=== PATIENT | female | born 1980 | race Caucasian/White ===

== ENCOUNTER → 2016-02-25 | Outpatient (CLI) | payer OTHER ==
[2016-02-26 15:56] LABS: Lamotrigine (Lamictal) 0.7 ug/mL (2.0-15.0)
[2016-02-28 04:47] LABS: Topiramate 1.9 ug/mL (2.0-20.0)
== END | disposition home or self-care (01) ==
LOC: LABWHC1 16:28
PROVIDERS: ATTEND Psychiatry & Neurology Pain Medicine
DX: R56.9 Unspecified convulsions (principal)
CPT/HCPCS: 36415; 80175; 80201

== ENCOUNTER → 2016-03-14 | Outpatient (CLI) | payer OTHER ==
[2016-03-15 07:42] LABS: Lamotrigine (Lamictal) 4.8 ug/mL (2.0-15.0)
[2016-03-16 07:11] LABS: Topiramate 5.7 ug/mL (2.0-20.0)
[2016-03-20 14:35] LABS: Mis test requested (Blood) VIMPAT
== END | disposition home or self-care (01) ==
LOC: LABWHC1 14:14
PROVIDERS: ATTEND Psychiatry & Neurology Pain Medicine
DX: R56.9 Unspecified convulsions (principal)
CPT/HCPCS: 36415; 80175; 80201; 80339

== ENCOUNTER → 2016-04-08 | Outpatient (CLI) | payer OTHER ==
[2016-04-08 11:20] LABS: Calcium 9.2 mg/dL (8.4-10.2); Magnesium 2.1 mg/dL (1.6-2.3)
[2016-04-08 12:39] LABS: Hemoglobin A1C 5.4 % (4.2-6.1)
[2016-04-11 05:29] LABS: Vitamin E (Alpha Tocopherol) 813 ug/dL (500-1800)
[2016-04-17 16:35] LABS: Vitamin K 162 pg/mL (80-1160)
== END | disposition home or self-care (01) ==
LOC: LABWHC1 10:23
PROVIDERS: ATTEND Psychiatry & Neurology Pain Medicine
DX: E55.9 Vitamin D deficiency, unspecified (principal); R20.0 Anesthesia of skin; G89.29 Other chronic pain
CPT/HCPCS: 36415; 82306; 82310; 82550; 82607; 83036; 83519; 83735; 84207; 84425; 84446; 84590; 84597

== ENCOUNTER → 2016-06-09 | Outpatient (CLI) | payer OTHER ==
[2016-06-12 06:42] LABS: Lamotrigine (Lamictal) 6.1 ug/mL (2.0-15.0)
[2016-06-12 06:44] LABS: Topiramate 7.1 ug/mL (2.0-20.0)
== END | disposition home or self-care (01) ==
LOC: LABWHC1 09:39
PROVIDERS: ATTEND Psychiatry & Neurology Neurology
DX: E55.9 Vitamin D deficiency, unspecified (principal)
CPT/HCPCS: 36415; 80175; 80201; 82306

== ENCOUNTER → 2016-06-09 | Outpatient (CLI) | payer OTHER ==
--- NOTE | 2016-06-09 10:15 | XR ---
EXAMINATION TYPE: XR humerus RT DATE OF EXAM: 06/09/2016 10:03 AM COMPARISON: NONE HISTORY: 35 year-old female right arm pain TECHNIQUE: 2 views FINDINGS: No acute fracture identified. The shoulder and elbow articulations appear grossly intact. No periosti tis or osteolysis. IMPRESSION: No acute osseous abnormality seen.
== END | disposition home or self-care (01) ==
LOC: RADXRMAIN 09:50
PROVIDERS: ATTEND Psychiatry & Neurology Pain Medicine
DX: M79.601 Pain in right arm (principal)

== ENCOUNTER → 2016-06-26 | Outpatient (CLI) | payer OTHER | END | disposition home or self-care (01) | LOC: LABWHC1 15:32 | PROVIDERS: ATTEND Psychiatry & Neurology Pain Medicine | DX: E55.9 Vitamin D deficiency, unspecified (principal) | CPT/HCPCS: 36415; 82306 ==

== ENCOUNTER 2016-10-20 13:43 | Inpatient (IN) | payer OTHER ==
[2016-10-20] MEDS ORDERED: CLINDAMYCIN 900 MG in DEXTROSE 5% IN WATER 50 ML IVPB STA ×2 (14:08)
[2016-10-20] MEDS ORDERED: KETOROLAC 30 MG/ML 1 ML VIAL IVP STA (14:08)
[2016-10-20] MEDS ORDERED: SODIUM CHLORIDE 0.9% 2,000 ML IV ONE (14:22)
--- NOTE | 2016-10-20 14:25 | ED ---
Skin/Abscess/FB HPI - General Chief complaint: Skin/Abscess/Foreign Body Stated complaint: skin abcess inside left thigh Time Seen by Provider: 10/20/16 14:01 Source: patient Mode of arrival: ambulatory Limitations: no limitations - History of Present Illness Initial comments: The patient is a 36-year-old female who presents with a chief complaint of an abscess on her left upper inner thigh. Patient states that she thinks it was set off by a bug bite that happened on Sunday. Initially she thought it was a pimple and tried to pop it, she was unsuccessful. Since then the erythematous area has been getting bigger, and she states that her leg is now exquisitely painful. She admits to some tingling down her left leg. She states it is very hard to walk secondary to the skin pain. She denies fevers at home however on initial evaluation she is febrile at 100.5. She has no other complaints at this time. She does not have a history of skin infections, she is nondiabetic. MD complaint: abscess/boil Onset/Timin -: days(s) Tetanus Up to Date: unsure Location: LLE Severity: severe Quality: burning, aching, sharp Consistency: constant Improves with: none Worsens with: none Context: none Associated symptoms: denies other symptoms Treatments Prior to Arrival: none - Related Data Home Medications Medication Instructions Recorded Confirmed Lacosamide [Vimpat] 200 mg PO BID 10/20/16 10/20/16 Topiramate [Topamax] 200 mg PO BID 10/20/16 10/20/16 lamoTRIgine [LaMICtal] 100 mg PO BID 10/20/16 10/20/16 lamoTRIgine [LaMICtal] 150 mg PO BID 10/20/16 10/20/16 Allergies Allergy/AdvReac Type Severity Reaction Status Date / Time levetiracetam [From [facility]] Allergy Rash/Hives Verified 10/20/16 14:58 Review of Systems ROS Statement: Those systems with pertinent positive or pertinent negative responses have been documented in the HPI. ROS Other: All systems not noted in ROS Statement are negative. Constitutional: Reports: fever. Denies: chills, night sweats Eyes: Denies: vision change ENT: Denies: ear pain, throat pain Respiratory: Denies: cough, dyspnea Cardiovascular: Denies: chest pain Endocrine: Denies: fatigue Gastrointestinal: Denies: nausea, vomiting Genitourinary: Denies: dysuria Musculoskeletal: Denies: back pain Skin: Reports: lesions. Denies: rash Neurological: Denies: headache Past Medical History Past Medical History: Seizure Disorder History of Any Multi-Drug Resistant Organisms: None Reported Additional Past Surgical History / Comment(s): VNS implant Past Psychological History: No Psychological Hx Reported Smoking Status: Current some day smoker Past Alcohol Use History: None Reported Past Drug Use History: None Reported General Exam Limitations: no limitations General appearance: alert, in no apparent distress Head exam: Present: atraumatic, normocephalic Eye exam: Present: PERRL ENT exam: Present: normal exam, normal oropharynx, mucous membranes moist Neck exam: Present: normal inspection Respiratory exam: Present: normal lung sounds bilaterally. Absent: respiratory distress, wheezes Cardiovascular Exam: Present: normal rhythm, tachycardia GI/Abdominal exam: Present: soft. Absent: distended, tenderness, guarding Rectal exam: Present: deferred Extremities exam: Present: normal inspection. Absent: tenderness Back exam: Present: normal inspection Neurological exam: Present: alert, altered, oriented X3 Psychiatric exam: Present: normal affect, normal mood Skin exam: Present: erythema, other (Patient has an 8 x 6" area of cellulitis with central induration pustule formation. The affected area is exquisitely tender to palpation and is warm to the touch.) Course Vital Signs 10/20/16 10/20/16 13:54 16:35 Temperature 100.5 F H 98.5 F Pulse Rate 113 H 74 Respiratory 20 20 Rate Blood Pressure 135/91 129/64 O2 Sat by Pulse 99 99 Oximetry Procedures - Incision & Drainage Consent Obtained: verbal consent Time Out Performed?: Yes Site: lower extremity Size (cm): 2 Anesthetic Used: lidocaine 1% I&D Cleaning Method: Betadine Sterile Field Used?: Yes Scalpel Used: #11 Needle Aspiration Performed?: No Irrigation Performed?: Yes I&D Drainage Obtained: Pus, Blood, Serous Packing: Iodoform Culture Obtained?: No Complications: pain Patient Tolerated Procedure: well, no complications Medical Decision Making - Medical Decision Making Patient presents with a chief complaint of cellulitis and abscess of the left thigh. On initial evaluation, the patient is in no distress however vital signs show a febrile patient at 100.5 with tachycardia 113. Patient will be sent for Doppler of the left lower extremity and ultrasound evaluation of the affected area. Patient will be started on clindamycin given IV fluids (30 cc/kg ). Well plan to admit this patient for surgical consult. 4:19 PM I spoke with Dr. Reyes regarding this patient's case. Ultrasound results show cobblestoning the tissue with an ill-defined 1.5 cm area of fluid collection. An I&D was performed in the emergency department with retrieval of purulent fluid. Patient was able to tolerate the procedure under local anesthetic. They will still be admitted as she is septic. Fluid boluses are in , antibiotics are started. This case will be discussed with Dr. Elizabeth who states he will come to the emergency department. Patient is agreeable with current care plan. 4:[address] Elizaebth accepts patient for treatment of cellulitis and sepsis. At reevaluation, patient's vital signs stabilized with the fluid boluses. She appears well. - Lab Data Result diagrams: 10/20/16 14:25 10/20/16 14:25 Lab Results 10/20/16 10/20/16 10/20/16 Range/Units 14:25 14:25 14:25 WBC 8.6 (3.8-10.6) k/uL RBC 4.21 (3.80-5.40) m/uL Hgb 12.4 (11.4-16.0) gm/dL Hct 35.7 (34.0-46.0) % MCV 84.8 (80.0-100.0) fL MCH 29.5 (25.0-35.0) pg MCHC 34.8 (31.0-37.0) g/dL RDW 12.6 (11.5-15.5) % Plt Count 264 (150-450) k/uL Neutrophils % 73 % Lymphocytes % 19 % Monocytes % 5 % Eosinophils % 2 % Basophils % 0 % Neutrophils # 6.3 (1.3-7.7) k/uL Lymphocytes # 1.6 (1.0-4.8) k/uL Monocytes # 0.4 (0-1.0) k/uL Eosinophils # 0.1 (0-0.7) k/uL Basophils # 0.0 (0-0.2) k/uL Sodium 140 (137-145) mmol/L Potassium 3.7 (3.5-5.1) mmol/L Chloride 107 (98-107) mmol/L Carbon Dioxide 22 (22-30) mmol/L Anion Gap 11 mmol/L BUN 17 (7-17) mg/dL Creatinine 0.90 (0.52-1.04) mg/dL Est GFR (MDRD) Af Amer >60 (>60 ml/min/1.73 sqM) Est GFR (MDRD) Non-Af >60 (>60 ml/min/1.73 sqM) Glucose 89 (74-99) mg/dL Plasma Lactic Acid Adam 0.8 (0.7-2.0) mmol/L Calcium 9.2 (8.4-10.2) mg/dL Disposition Clinical Impression: Cellulitis and abscess of left leg, Sepsis, Abscess Disposition: ADMITTED IP TO THIS HOSP Condition: Good Referrals: None,Stated [Primary Care Provider] - 1-2 days Decision to Admit Reason: Admit from EC - Out of Hospital Transfer - Req. Specs Out of Hospital Transfer - Requested Specifics: Telemetry Unit
[2016-10-20 14:43] LABS: Basophils % (A) 0 %; CH 30.6; CHCM 36.2; Eosinophils # (A) 0.1 k/uL (0-0.7); Eosinophils % (A) 2 %; HCT 35.7 % (34.0-46.0); HDW 2.51; HGB 12.4 gm/dL (11.4-16.0); Luc # (Auto) 0.11; Luc % (Auto) 1; Lymphocytes # (A) 1.6 k/uL (1.0-4.8); Lymphocytes % (A) 19 %; MCH 29.5 pg (25.0-35.0); MCHC 34.8 g/dL (31.0-37.0); MCV 84.8 fL (80.0-100.0); Mean Platelet Volume 7.4; Monocytes # (A) 0.4 k/uL (0-1.0); Monocytes % (A) 5 %; Neutrophils # (A) 6.3 k/uL (1.3-7.7); Neutrophils % (A) 73 %; RBC 4.21 m/uL (3.80-5.40); RDW 12.6 % (11.5-15.5); WBC 8.6 k/uL (3.8-10.6); WBC (Perox) 8.95
[2016-10-20 14:55] LABS: Anion Gap 11 mmol/L; Blood Urea Nitrogen 17 mg/dL (7-17); Calcium 9.2 mg/dL (8.4-10.2); Carbon Dioxide 22 mmol/L (22-30); Chloride 107 mmol/L (98-107); Glucose 89 mg/dL (74-99); Non-African American GFR(MDRD) >60 (>60 ml/min/1.73 sqM); Potassium 3.7 mmol/L (3.5-5.1); Sodium 140 mmol/L (137-145)
--- NOTE | 2016-10-20 15:34 | US ---
EXAMINATION TYPE: US venous doppler duplex LE LT DATE OF EXAM: 10/20/2016 3:20 PM COMPARISON: NONE CLINICAL HISTORY: Pain. Left inner thigh palpable/painful area, exam done portable in ER SIDE PERFORMED: Left TECHNIQUE: The lower extremity deep venous system is examined utilizing real time linear array sonog sanjuanita with graded compression, doppler sonography and color-flow sonography. VESSELS IMAGED: External Iliac Vein (EIV) Common Femoral Vein Deep Femoral Vein Greater Saphenous Vein * Femoral Vein Popliteal Vein Small Saphenous Vein * Proximal Calf Veins (* superficial vessels) Left Leg: Appears negative for DVT, scanned medial thigh area of concern: 1.5cm irregular ill define d area seen Grayscale, color doppler, spectral doppler imaging performed of the deep veins of the left lower extr emity. There is normal flow, compressibility, vascular waveforms. IMPRESSION: No ultrasound evidence for acute DVT in the left lower extremity. Ill-defined irregular 1.3 cm area medial left thigh at area of palpable abnormality and pain could reflect organizing subcu taneous infection or phlegmon. No well-defined fluid collection or abscess is noted.
[2016-10-20] MEDS ORDERED: NALOXONE 0.4 MG/ML 1 ML VIAL IV PRN (16:49)
[2016-10-20 18:05] VITALS: BMI 37.3
[2016-10-20] MEDS: LACTATED RINGERS 1,000 ML IV SCH (18:15)
--- NOTE | 2016-10-20 19:29 | XR ---
EXAMINATION TYPE: XR chest 1V portable DATE OF EXAM: 10/20/2016 COMPARISON: NONE HISTORY: Chest pain TECHNIQUE: Single frontal view of the chest is obtained. FINDINGS: Heart and mediastinum are normal. Lungs are clear. Diaphragm is normal. There is a left ax illary implant with the lead tip at the base of the neck on the left side. There is no pleural effusi on. Bony thorax is intact. IMPRESSION: Normal chest
[2016-10-20] MEDS: ceFAZolin 2 GM in SODIUM CHLORIDE 0.9% 100 ML IVPB SCH (20:17)
[2016-10-20] MEDS: TOPIRAMATE 100 MG TAB PO SCH (20:19)
[2016-10-20] MEDS: lamoTRIgine 100 MG TAB PO SCH ×2 (20:19→20:20)
[2016-10-20] MEDS: HEPARIN SODIUM,PORCINE 5,000 UNIT/ML 1 ML VIAL SQ SCH (20:21)
[2016-10-20] MEDS: LACOSAMIDE 50 MG TABLET PO SCH (20:26)
[2016-10-20 21:57] LABS: Appearance,Urine Cloudy (Clear); Bacteria,Urine Few /hpf; Bilirubin,Urine Negative (Negative); Glucose,Urine (UA) Negative (Negative); Ketones,Urine Negative (Negative); Leukocyte Esterase,Urine Moderate (Negative); Mucus,Urine Occasional /hpf; Nitrite,Urine Negative (Negative); Particle Count 11376; Protein,Urine Negative (Negative); RBC,Urine 5 /hpf (0-5); Specific Gravity,Urine 1.017 (1.001-1.035); Squamous Epithelial Cell,Urine 10 /hpf (0-4); UA Billing (MACRO vs. MICRO) MICRO; Urobilinogen,Urine <2.0 mg/dL (<2.0); WBC,Urine 3 /hpf (0-5)
[2016-10-20] MEDS: ACETAMINOPHEN TAB 325 MG TAB PO PRN (22:04)
[2016-10-21] MEDS: ceFAZolin 2 GM in SODIUM CHLORIDE 0.9% 100 ML IVPB SCH ×3 (04:30→22:47)
[2016-10-21] MEDS: LACTATED RINGERS 1,000 ML IV SCH ×2 (04:30→15:36)
[2016-10-21] MEDS: ACETAMINOPHEN TAB 325 MG TAB PO PRN (04:50)
[2016-10-21 06:42] LABS: Basophils % (A) 0 %; CHCM 33.3; Eosinophils # (A) 0.1 k/uL (0-0.7); Eosinophils % (A) 2 %; HCT 34.1 % (34.0-46.0); HDW 2.51; HGB 11.5 gm/dL (11.4-16.0); Luc # (Auto) 0.09; Luc % (Auto) 2; Lymphocytes # (A) 1.3 k/uL (1.0-4.8); Lymphocytes % (A) 23 %; MCH 29.6 pg (25.0-35.0); MCHC 33.8 g/dL (31.0-37.0); MCV 87.4 fL (80.0-100.0); Mean Platelet Volume 6.8; Monocytes # (A) 0.4 k/uL (0-1.0); Monocytes % (A) 6 %; Neutrophils # (A) 3.7 k/uL (1.3-7.7); Neutrophils % (A) 67 %; RBC 3.91 m/uL (3.80-5.40); RDW 12.1 % (11.5-15.5); WBC 5.6 k/uL (3.8-10.6); WBC (Perox) 5.82
[2016-10-21 06:53] LABS: Anion Gap 7 mmol/L; Blood Urea Nitrogen 12 mg/dL (7-17); Calcium 8.4 mg/dL (8.4-10.2); Carbon Dioxide 21 mmol/L (22-30); Chloride 113 mmol/L (98-107); Glucose 95 mg/dL (74-99); Non-African American GFR(MDRD) >60 (>60 ml/min/1.73 sqM); Potassium 3.9 mmol/L (3.5-5.1); Sodium 141 mmol/L (137-145)
[2016-10-21] MEDS: IBUPROFEN 400 MG TAB PO PRN ×2 (08:21→15:33)
[2016-10-21] MEDS: TOPIRAMATE 100 MG TAB PO SCH ×2 (08:23→21:16)
[2016-10-21] MEDS: HEPARIN SODIUM,PORCINE 5,000 UNIT/ML 1 ML VIAL SQ SCH ×2 (08:23→21:16)
[2016-10-21] MEDS: lamoTRIgine 100 MG TAB PO SCH ×4 (08:24→21:19)
[2016-10-21] MEDS: LACOSAMIDE 50 MG TABLET PO SCH ×2 (09:48→21:24)
--- NOTE | 2016-10-21 11:27 | HP ---
HISTORY AND PHYSICAL DATE OF SERVICE: 10/20/2009. CHIEF COMPLAINTS: Pain and swelling of the left thigh. HISTORY: This 36-year-old woman with a past history of seizure disorder, vagal nerve stimulator implant being followed by no primary physician in the outpatient setting was noted to have pain and swelling of the left thigh for several days. Patient apparently poked the swelling but because of increasing pain, swelling and erythema and fever patient came to [facility] Emergency Room and admitted for further evaluation and treatment. Incision and drainage done and revealed some amount of pus and the temperatures is up to 100.5. Patient is started on broad-spectrum IV antibiotics and admitted for further evaluation. There is no rigors. No headache, loss of consciousness or seizures. PAST MEDICAL HISTORY: Seizures, VNS implant. MEDICATIONS: The medications prior to admission, the home medications are: 1. Lamictal 150 mg p.o. b.i.d. 2. Topamax 200 mg b.i.d. 3. Vimpat 200 mg b.i.d. ALLERGIES: KEPPRA. FAMILY HISTORY: No history of heart disease or strokes in the family. SOCIAL HISTORY: Previous history of smoker. No history of current smoking or alcohol intact. REVIEW OF SYSTEMS: ENT: No diminished hearing or vision. CARDIOVASCULAR: No angina. RESPIRATORY: No cough. GI: No nausea. : No dysuria. NERVOUS SYSTEM: No numbness or weakness. ALLERGY/IMMUNOLOGY: No asthma or hayfever. MUSCULOSKELETAL: As mentioned earlier. HEMATOLOGY/ONCOLOGY: No history of anemia. ENDOCRINE: No history of diabetes or hypothyroidism. CONSTITUTIONAL: As mentioned earlier. DERMATOLOGY: Negative. RHEUMATOLOGY: Negative. PSYCHIATRY: As mentioned earlier. PHYSICAL EXAMINATION: Patient is alert and oriented x3. Pulse 74, blood pressure 129/64, respiratory 20, temperature 98.4, pulse ox 99%. T-max 100.5. Maximum pulse rate 113. HEENT: Conjunctivae normal. Oral mucosa moist. NECK: No jugular venous distention. No carotid bruit. No lymph node enlargement. CARDIOVASCULAR: S1, S2. No S3 or S4. RESPIRATORY: Breath sounds diminished at the bases. A few rhonchi, no crackles. ABDOMEN: Soft, obese, nontender, no mass palpable. LEGS: Minimal edema. NERVOUS SYSTEM: Higher function as mentioned. Moves all four limbs. No focal motor sensory deficits. LYMPHATICS: No lymphadenopathy in the neck, axillae or groin. SKIN: Exam shows left thigh erythema, swelling and status post incision and drainage. Severe tenderness also present. No masses present. Ultrasound showed area of retained abscess. JOINTS: No active deforming arthropathy. LAB: The CBC within normal. CMP noted. ASSESSMENT: 1. Left thigh abscess with surrounding cellulitis with early sepsis, status post incision and drainage. 2. Seizure disorder. 3. Vagal nerve stimulation implant. 4. History of nicotine dependence. RECOMMENDATIONS AND DISCUSSION: In this 36-year-old woman presents multiple complex medical issues, we will monitor the patient closely. Continue the current medications and broad-spectrum IV antibiotics. I would recommend a surgical evaluation as well as infectious disease evaluation. Otherwise I would also recommend a neurology consultation because of the concerns of alteration of the seizure threshold and repeated VNS at discharge also. DVT prophylaxis also will be pursued. Overall prognosis guarded because of multiple complex medical issues and will avoid fluoroquinolones. Otherwise guarded prognosis because of multiple complex medical issues. Further recommendations to follow. Repeat labs also will be sought. I would also recommend UA with micro as well. Venous Doppler was done during in the ER which showed no evidence. Ultrasound 1.3 cm left thigh palpable abscess was noted. A portable chest x-ray was also recommended at this time. Further recommendations to follow. MMODL / IJN: [id number] / LILLIAN
[2016-10-21] MEDS: HYDROcodone/APAP 5-325MG 1 EACH TAB PO PRN ×2 (12:04→19:44)
--- NOTE | 2016-10-21 14:03 | P.GSCN ---
History of Present Illness Consult date: 10/21/16 Reason for Consult: Left thigh abscess History of present illness: This is a 36-year-old female who has a 5 day history of left thigh inflammation. Patient was in the emergency room. She underwent incision and drainage of a small left thigh abscess. She is currently receiving IV antibiotics. She states that her abscess and inflammation area has improved since her incision and drainage. Past Medical History Past Medical History: Seizure Disorder History of Any Multi-Drug Resistant Organisms: None Reported Past Surgical History: Tubal Ligation Additional Past Surgical History / Comment(s): VNS implant, Past Anesthesia/Blood Transfusion Reactions: No Reported Reaction Past Psychological History: No Psychological Hx Reported Smoking Status: Former smoker Past Alcohol Use History: None Reported Past Drug Use History: None Reported - Past Family History Mother Family Medical History: Diabetes Mellitus Father Family Medical History: Seizure Disorder Medications and Allergies Home Medications Medication Instructions Recorded Confirmed Type Lacosamide [Vimpat] 200 mg PO BID 10/20/16 10/20/16 History Topiramate [Topamax] 200 mg PO BID 10/20/16 10/20/16 History lamoTRIgine [LaMICtal] 100 mg PO BID 10/20/16 10/20/16 History lamoTRIgine [LaMICtal] 150 mg PO BID 10/20/16 10/20/16 History Allergies Allergy/AdvReac Type Severity Reaction Status Date / Time levetiracetam [From [facility]] Allergy Intermediate Rash/Hives Verified 10/20/16 18 :06 Surgical - Exam Vital Signs Temp Pulse Resp BP Pulse Ox 100.5 F H 113 H 20 135/91 99 10/20/16 13:54 10/20/16 13:54 10/20/16 13:54 10/20/16 13:54 10/20/16 13:54 - General well developed, no distress - Eyes PERRL - Integumentary Resolving cellulitis of left medial thigh. There is some evidence of induration. There is no evidence of any drainable abscess. Results - Labs 10/21/16 06:24 10/21/16 06:24 Abnormal Lab Results - Last 24 Hours (Table) 10/20/16 10/21/16 Range/Units 21:30 06:24 Chloride 113 H (98-107) mmol/L Carbon Dioxide 21 L (22-30) mmol/L Urine Appearance Cloudy H (Clear) Ur Leukocyte Esterase Moderate H (Negative) Ur Squamous Epith Cells 10 H (0-4) /hpf Urine Bacteria Few H (None) /hpf Urine Mucus Occasional H (None) /hpf Diabetes panel 10/20/16 10/21/16 Range/Units 14:25 06:24 Sodium 140 141 (137-145) mmol/L Potassium 3.7 3.9 (3.5-5.1) mmol/L Chloride 107 113 H (98-107) mmol/L Carbon Dioxide 22 21 L (22-30) mmol/L BUN 17 12 (7-17) mg/dL Creatinine 0.90 0.76 (0.52-1.04) mg/dL Glucose 89 95 (74-99) mg/dL Calcium 9.2 8.4 (8.4-10.2) mg/dL Calcium panel 10/20/16 10/21/16 Range/Units 14:25 06:24 Calcium 9.2 8.4 (8.4-10.2) mg/dL Pituitary panel 10/20/16 10/21/16 Range/Units 14:25 06:24 Sodium 140 141 (137-145) mmol/L Potassium 3.7 3.9 (3.5-5.1) mmol/L Chloride 107 113 H (98-107) mmol/L Carbon Dioxide 22 21 L (22-30) mmol/L BUN 17 12 (7-17) mg/dL Creatinine 0.90 0.76 (0.52-1.04) mg/dL Glucose 89 95 (74-99) mg/dL Calcium 9.2 8.4 (8.4-10.2) mg/dL Adrenal panel 10/20/16 10/21/16 Range/Units 14:25 06:24 Sodium 140 141 (137-145) mmol/L Potassium 3.7 3.9 (3.5-5.1) mmol/L Chloride 107 113 H (98-107) mmol/L Carbon Dioxide 22 21 L (22-30) mmol/L BUN 17 12 (7-17) mg/dL Creatinine 0.90 0.76 (0.52-1.04) mg/dL Glucose 89 95 (74-99) mg/dL Calcium 9.2 8.4 (8.4-10.2) mg/dL Assessment and Plan Plan: Left thigh abscess. The abscess drained in the ER. We'll continue receive IV antibiotics and local wound care.
[2016-10-21] MEDS ORDERED: IV VANCOMYCIN PER PHARMACY 1 EACH MISC MISCELLANE PRN (18:08)
[2016-10-21] MEDS: HYDROmorphone 1 MG/ML 1 ML SYRINGE IVP PRN (18:42)
[2016-10-21] MEDS ORDERED: VANCOMYCIN 1,750 MG in SODIUM CHLORIDE 0.9% 250 ML IVPB ONE (19:00)
--- NOTE | 2016-10-21 19:15 | PN ---
PROGRESS NOTE DATE OF SERVICE: 10/21/2016 This is a progress note. INTERVAL HISTORY: This 36-year-old woman is admitted with pain and swelling of the left thigh, had incision and drainage. The final report is pending at this time. The patient also has history of seizure disorder. Cultures are negative so far. PHYSICAL EXAM: Alert and oriented x3. Pulse is 66, blood pressure is 122/56, respiration 20, temperature is 97.2, pulse ox 100% on room air. HEENT: Conjunctivae normal. Oral mucosa moist. Neck is no jugular venous distention. No carotid bruit. No lymph node enlargement. Cardiovascular system: S1, S2. Respiratory: Breath sounds diminished at the bases. No rhonchi. No crackles. ABDOMEN: Soft, nontender. Legs: Left thigh swelling and erythema and tenderness present. Central nervous system: Higher functions as mentioned earlier. Moves all four limbs. No focal deficits. Lymphatics: No lymph nodes palpable in the neck, axillae or groin. SKIN: No ulcer, rash or bleeding. LABS: At this time, CBC within normal limits. CO2 is 21, UA noted. ASSESSMENT: 1. Left thigh abscess and surrounding cellulitis with early sepsis. Status post incision and drainage. 2. Seizure disorder. 3. History of vagus nerve stimulation implant. 4. History of nicotine dependence. RECOMMENDATION AND DISCUSSION: Recommend to continue current management and symptomatic treatment. Otherwise the patient is on cefazolin, IV cefazolin and will continue current medications. Continue symptomatic treatment. Await infectious disease and surgical evaluation. Guarded prognosis. Further recommendations to follow. MMODL / IJN: [id number] /
--- NOTE | 2016-10-21 19:50 | P.CONS ---
History of Present Illness - Reason for Consult Consult date: 10/21/16 - Chief Complaint Pain left thigh - History of Present Illness 36 year old female presents to hospital with a 5 day history of increasing pain and swelling to the medial aspect of her left thigh. The patient relates that she developed a pimple-like process in the area. She thought she had a bug bite. She manipulated it significantly at home. She was never able to get any material out of the site. Then it certainly increased in size swelling erythema pain. Consultation presented to the emergency center where she was on evidence of an abscess. It was incised and drained emergency center and packed. Because of concerns of the abscess the infectious diseases consultation was requested. At this time is possibly related to site is still very tender. But she's not having high-grade fevers chills rigors or sweats. Abdomen the pain at that site she is not having other acute complaints at this time. Denies other problems like this in the past. Review of Systems HEENT:Denies headache or acute visual change. Denies sinus or mouth discomforts. Denies neck stiffness or pain. Denies significant oral cavity pain. Denies difficulty on swallowing. Lungs: Denies significant shortness of breath, cough, sputum production, or hemoptysis. Cardiovascular: Denies significant shortness of breath, chest pain, chest wall pain, orthopnea, dyspnea on exertion, syncope Gastrointestinal:Denies nausea, vomiting, diarrhea, constipation, hematemesis, melena, hematochezia. No no significant change of bowel habit noticed. Musculoskeletal: denies significant myalgias or arthralgias. No new joint swelling. Denies new back pain. Skin: As per the HPI Neuro: Denies headache or visual change. Denies any new onset weakness or difficulty with ambulation. Denies falls or seizures. Psychiatric:Denies anxiety or depression. Endocrine: Denies significant fatigue, denies significant weight loss or weight gain. Past Medical History Past Medical History: Seizure Disorder History of Any Multi-Drug Resistant Organisms: None Reported Past Surgical History: Tubal Ligation Additional Past Surgical History / Comment(s): VNS implant, Past Anesthesia/Blood Transfusion Reactions: No Reported Reaction Past Psychological History: No Psychological Hx Reported Additional Psychological History / Comment(s): Single her children aged 14 and 10 live with her. Does not works outside of the home. No tobacco use since 2013. Denies significant alcohol or recreational drug use. No experience. No travel history. No pets in the home at this time Smoking Status: Former smoker Past Alcohol Use History: None Reported Past Drug Use History: None Reported - Past Family History Mother Family Medical History: Diabetes Mellitus Father Family Medical History: Seizure Disorder Medications and Allergies Home Medications and Allergies Comment(s): Current Medications Acetaminophen (Tylenol Tab) 650 mg PO Q6HR PRN PRN Reason: Mild Pain or Fever > 100.5 Last Admin: 10/21/16 04:50 Dose: 650 mg Hydrocodone Bitart/Acetaminophen ([place] 5-325) 1 each PO Q6HR PRN PRN Reason: Pain Last Admin: 10/21/16 19:44 Dose: 1 each Heparin Sodium (Porcine) (Heparin) 5,000 unit SQ Q12HR [facility] Last Admin: 10/21/16 08:23 Dose: 5,000 unit Hydromorphone HCl (Dilaudid) 0.5 mg IVP Q4HR PRN PRN Reason: Pain Last Admin: 10/21/16 18:42 Dose: 0.5 mg Lactated Ringer's (Lactated Ringers) 1,000 mls @ 50 mls/hr IV .Q20H [facility] Last Admin: 10/21/16 15:36 Dose: 50 mls/hr Cefazolin Sodium 2 gm/ Sodium (Chloride) 100 mls @ 100 mls/hr IVPB Q8H [facility] Last Admin: 10/21/16 12:06 Dose: 100 mls/hr Vancomycin HCl 1,750 mg/ (Sodium Chloride) 250 mls @ 125 mls/hr IVPB ONCE ONE Stop: 10/21/16 20:59 Vancomycin HCl 1,500 mg/ (Sodium Chloride) 250 mls @ 125 mls/hr IVPB Q12H [facility] Ketorolac Tromethamine (Toradol) 30 mg IVP Q6HR [facility] Stop: 10/25/16 20:01 Lacosamide (Vimpat) 200 mg PO BID [facility] Last Admin: 10/21/16 09:48 Dose: 200 mg Lamotrigine (Lamictal) 100 mg PO BID [facility] Last Admin: 10/21/16 08:24 Dose: 100 mg Lamotrigine (Lamictal) 150 mg PO BID [facility] Last Admin: 10/21/16 08:25 Dose: 150 mg Multivitamins (Theragran) 1 each PO DAILY@1200 [facility] Naloxone HCl (Narcan) 0.2 mg IV Q2M PRN PRN Reason: Opioid Reversal Topiramate (Topamax) 200 mg PO BID [facility] Last Admin: 10/21/16 08:23 Dose: 200 mg Home Medications Medication Instructions Recorded Confirmed Type Lacosamide [Vimpat] 200 mg PO BID 10/20/16 10/20/16 History Topiramate [Topamax] 200 mg PO BID 10/20/16 10/20/16 History lamoTRIgine [LaMICtal] 100 mg PO BID 10/20/16 10/20/16 History lamoTRIgine [LaMICtal] 150 mg PO BID 10/20/16 10/20/16 History Allergies Allergy/AdvReac Type Severity Reaction Status Date / Time levetiracetam [From [facility]] Allergy Intermediate Rash/Hives Verified 10/20/16 18 :06 Physical Exam Vitals: Vital Signs Temp Pulse Resp BP Pulse Ox 10/21/16 15:00 97.7 F 71 18 99 10/21/16 11:40 97.0 F L 61 20 113/67 100 10/21/16 07:45 97.2 F L 66 20 122/56 100 10/20/16 20:27 97 F L 68 20 113/64 97 Intake and Output 10/21/16 10/21/16 10/21/16 06:59 14:59 22:59 Intake Total 240 250 Balance 240 250 Intake: Oral 240 250 Other: # Voids 3 1 1 # Bowel Movements 1 36-year-old woman who is mildly uncomfortable because of the abscess on her left thigh. HEENT: Anicteric conjunctiva are pink and moist nasal mucosa grossly intact without significant lesions, there is no thrush. Neck: The neck is supple without significant lymphadenopathy or thyromegaly. Lungs: Good bilateral air entry without significant crackles or wheezing. There is no significant bronchial sounds. There is no egophony or dullness. Heart: Regular rate and rhythm with an audible S1-S2, no S3 no S4. There is no significant murmur click or rub, PMI was nondisplaced. Abdomen: Positive bowel sounds soft and nontender without palpable masses or organomegaly. There was no guarding or rebound. Extremities: The upper extremities have excellent pulses they are symmetric, no significant petechiae or telangiectasia. No splinter hemorrhages were noted. The right leg is nonacute difficulties. The left lower extremity shows evidence of the significant swelling erythema and tenderness of the medial thigh.. Is incised and drained is still very tender. There is only a bit of serosanguineous material being expressed at this time which is very tender. There is no significant left inguinal lymphadenopathy. There is no significant ascending lymphangitis. No other lesions are seen at this point in time on the skin. Neuro: Awake alert oriented to person place and time. There are no acute new gross focal sensory motor deficits. Results CBC & Chem 7: 10/21/16 06:24 10/21/16 06:24 Labs: Abnormal Lab Results - Last 24 Hours (Table) 10/20/16 10/21/16 Range/Units 21:30 06:24 Chloride 113 H (98-107) mmol/L Carbon Dioxide 21 L (22-30) mmol/L Urine Appearance Cloudy H (Clear) Ur Leukocyte Esterase Moderate H (Negative) Ur Squamous Epith Cells 10 H (0-4) /hpf Urine Bacteria Few H (None) /hpf Urine Mucus Occasional H (None) /hpf Microbiology - Last 24 Hours (Table) 10/20/16 14:25 Blood Culture - Preliminary Blood No Growth after 24 hours Laboratory Results WBC 5.6 k/uL (3.8-10.6) 10/21/16 06:24 RBC 3.91 m/uL (3.80-5.40) 10/21/16 06:24 Hgb 11.5 gm/dL (11.4-16.0) 10/21/16 06:24 Hct 34.1 % (34.0-46.0) 10/21/16 06:24 MCV 87.4 fL (80.0-100.0) 10/21/16 06:24 MCH 29.6 pg (25.0-35.0) 10/21/16 06:24 MCHC 33.8 g/dL (31.0-37.0) 10/21/16 06:24 RDW 12.1 % (11.5-15.5) 10/21/16 06:24 Plt Count 254 k/uL (150-450) 10/21/16 06:24 Neutrophils % 67 % 10/21/16 06:24 Lymphocytes % 23 % 10/21/16 06:24 Monocytes % 6 % 10/21/16 06:24 Eosinophils % 2 % 10/21/16 06:24 Basophils % 0 % 10/21/16 06:24 Neutrophils # 3.7 k/uL (1.3-7.7) 10/21/16 06:24 Lymphocytes # 1.3 k/uL (1.0-4.8) 10/21/16 06:24 Monocytes # 0.4 k/uL (0-1.0) 10/21/16 06:24 Eosinophils # 0.1 k/uL (0-0.7) 10/21/16 06:24 Basophils # 0.0 k/uL (0-0.2) 10/21/16 06:24 Sodium 141 mmol/L (137-145) 10/21/16 06:24 Potassium 3.9 mmol/L (3.5-5.1) 10/21/16 06:24 Chloride 113 mmol/L (98-107) H 10/21/16 06:24 Carbon Dioxide 21 mmol/L (22-30) L 10/21/16 06:24 Anion Gap 7 mmol/L 10/21/16 06:24 BUN 12 mg/dL (7-17) 10/21/16 06:24 Creatinine 0.76 mg/dL (0.52-1.04) 10/21/16 06:24 Est GFR (MDRD) Af Amer >60 (>60 ml/min/1.73 sqM) 10/21/16 06:24 Est GFR (MDRD) Non-Af >60 (>60 ml/min/1.73 sqM) 10/21/16 06:24 Glucose 95 mg/dL (74-99) 10/21/16 06:24 Plasma Lactic Acid Adam 0.8 mmol/L (0.7-2.0) 10/20/16 14:25 Calcium 8.4 mg/dL (8.4-10.2) 10/21/16 06:24 Magnesium 2.0 mg/dL (1.6-2.3) 10/21/16 06:24 Urine Color Yellow 10/20/16 21:30 Urine Appearance Cloudy (Clear) H 10/20/16 21:30 Urine pH 6.0 (5.0-8.0) 10/20/16 21:30 Ur Specific [place] 1.017 (1.001-1.035) 10/20/16 21:30 Urine Protein Negative (Negative) 10/20/16 21:30 Urine Glucose (UA) Negative (Negative) 10/20/16 21:30 Urine Ketones Negative (Negative) 10/20/16 21:30 Urine Blood Negative (Negative) 10/20/16 21:30 Urine Nitrite Negative (Negative) 10/20/16 21:30 Urine Bilirubin Negative (Negative) 10/20/16 21:30 Urine Urobilinogen <2.0 mg/dL (<2.0) 10/20/16 21:30 Ur Leukocyte Esterase Moderate (Negative) H 10/20/16 21:30 Urine RBC 5 /hpf (0-5) 10/20/16 21:30 Urine WBC 3 /hpf (0-5) 10/20/16 21:30 Ur Squamous Epith Cells 10 /hpf (0-4) H 10/20/16 21:30 Urine Bacteria Few /hpf (None) H 10/20/16 21:30 Urine Mucus Occasional /hpf (None) H 10/20/16 21:30 Urine Opiates Screen Not Detected (NotDetected) 10/20/16 21:30 Ur Oxycodone Screen Not Detected (NotDetected) 10/20/16 21:30 Urine Methadone Screen Not Detected (NotDetected) 10/20/16 21:30 Ur Propoxyphene Screen Not Detected (NotDetected) 10/20/16 21:30 Ur Barbiturates Screen Not Detected (NotDetected) 10/20/16 21:30 U Tricyclic Antidepress Not Detected (NotDetected) 10/20/16 21:30 Ur Phencyclidine Scrn Not Detected (NotDetected) 10/20/16 21:30 Ur Amphetamines Screen Not Detected (NotDetected) 10/20/16 21:30 U Methamphetamines Scrn Not Detected (NotDetected) 10/20/16 21:30 U Benzodiazepines Scrn Not Detected (NotDetected) 10/20/16 21:30 Urine Cocaine Screen Not Detected (NotDetected) 10/20/16 21:30 U Marijuana (THC) Screen Not Detected (NotDetected) 10/20/16 21:30 Microbiology 10/20/16 14:25 Blood Blood Culture - Preliminary No Growth after 24 hours Assessment and Plan (1) Abscess Narrative/Plan: 36-year-old female presents to the hospital with a five-day history of increasing pain and swelling to the left thigh. She developed a pimple and with manipulation it did not improved. Nausea distinct abscess area in the left thigh that had an I&D done in the emergency center. She's been seen by surgery who is one monitoring and may consider further decision drainage depending on his progress. For antibiotic therapy will add vancomycin to ceftezole concerns that this could be an MRSA infection given the presentation. Local wound care will be changed to Aquacel silver rope packed into the area. Local wound care will hopefully help the discomfort. Toradol will be added for some pain control. Multivitamin is added to help her overall wound healing. She believes she is up-to-date with her tetanus vaccine already. Status: Acute (2) Cellulitis and abscess of left leg Status: Acute
[2016-10-21] MEDS: KETOROLAC 30 MG/ML 1 ML VIAL IVP SCH (21:29)
[2016-10-21] MEDS ORDERED: diphenhydrAMINE 25 MG CAP PO PRN (22:19)
[2016-10-21] MEDS: diphenhydrAMINE 25 MG CAP PO PRN (22:39)
[2016-10-22] MEDS: KETOROLAC 30 MG/ML 1 ML VIAL IVP SCH ×4 (03:41→22:14)
[2016-10-22] MEDS: ceFAZolin 2 GM in SODIUM CHLORIDE 0.9% 100 ML IVPB SCH ×3 (05:31→23:23)
[2016-10-22] MEDS: VANCOMYCIN 1,500 MG in SODIUM CHLORIDE 0.9% 250 ML IVPB SCH ×2 (06:55→19:10)
[2016-10-22] MEDS: diphenhydrAMINE 25 MG CAP PO PRN ×2 (07:10→18:27)
[2016-10-22] MEDS: HEPARIN SODIUM,PORCINE 5,000 UNIT/ML 1 ML VIAL SQ SCH ×2 (08:29→21:08)
[2016-10-22] MEDS: lamoTRIgine 100 MG TAB PO SCH ×4 (08:29→21:06)
[2016-10-22] MEDS: TOPIRAMATE 100 MG TAB PO SCH ×2 (08:30→21:05)
[2016-10-22] MEDS: LACOSAMIDE 50 MG TABLET PO SCH ×2 (08:36→21:04)
--- NOTE | 2016-10-22 09:01 | P.PN ---
Progress Note - Text Patient still has complaints of left thigh tenderness. On exam her vital signs are stable. There is decreasing cellulitis on her left thigh. There is some minimal serosanguineous drainage from her incision drainage site. The actual area around the incision and drainage site has less induration. Patient will continue receive IV vancomycin. We will follow with you.
[2016-10-22] MEDS: MULTIVITAMINS, THERA 1 EACH TAB PO SCH (11:53)
[2016-10-22] MEDS: HYDROcodone/APAP 5-325MG 1 EACH TAB PO PRN (18:27)
[2016-10-22] MEDS: LACTATED RINGERS 1,000 ML IV SCH (19:11)
[2016-10-22] MEDS: HYDROmorphone 1 MG/ML 1 ML SYRINGE IVP PRN ×2 (19:25→19:55)
--- NOTE | 2016-10-22 19:57 | PN ---
PROGRESS NOTE DATE OF SERVICE: 10/22/2016 This is a progress note. INTERVAL HISTORY: This 36-year-old woman who was admitted with left thigh abscess and surrounding cellulitis also had features of early sepsis. The patient is followed by Infectious Disease as well as surgery also. No chest pain. No palpitations. No fever. ON EXAM: Alert and oriented times three. Pulse 58, blood pressure 106/60, respirations 16, temp 96.8, pulse ox 100% on room air. HEENT: Conjunctivae normal. Neck: No jugular venous distention. Cardiovascular: S1, S2. Respiratory: Breath sounds diminished at the bases. No rhonchi. No crackles. ABDOMEN: Soft, nontender. Legs: Left leg swelling and erythema present. Nervous system: No focal deficits. LABS: UA noted. Otherwise the final cultures are still pending at this time. ASSESSMENT: 1. Left thigh abscess and surrounding cellulitis with early sepsis, status post incision and drainage, rule out Methicillin-resistant Staphylococcus aureus. 2. Seizure disorder. 3. History of vagus nerve stimulation and implant. 4. History of nicotine dependence. RECOMMENDATIONS AND DISCUSSION: Recommend to continue current medications, continue symptomatic treatment. Otherwise at this time continue antibiotics. Symptomatic treatment. Infectious disease evaluation. Await final reports. Guarded prognosis. Further recommendations to follow. MMODL / IJN: [id number] /
[2016-10-23] MEDS: KETOROLAC 30 MG/ML 1 ML VIAL IVP SCH ×4 (04:19→19:38)
[2016-10-23] MEDS: VANCOMYCIN 1,500 MG in SODIUM CHLORIDE 0.9% 250 ML IVPB SCH ×2 (06:37→18:53)
[2016-10-23] MEDS: diphenhydrAMINE 25 MG CAP PO PRN ×2 (06:37→18:18)
[2016-10-23] MEDS: lamoTRIgine 100 MG TAB PO SCH ×4 (08:02→21:19)
[2016-10-23] MEDS: TOPIRAMATE 100 MG TAB PO SCH ×2 (08:02→21:18)
[2016-10-23] MEDS: HEPARIN SODIUM,PORCINE 5,000 UNIT/ML 1 ML VIAL SQ SCH ×2 (08:03→21:19)
[2016-10-23] MEDS: LACOSAMIDE 50 MG TABLET PO SCH ×2 (08:10→21:19)
[2016-10-23] MEDS: ceFAZolin 2 GM in SODIUM CHLORIDE 0.9% 100 ML IVPB SCH ×2 (09:25→16:26)
[2016-10-23] MEDS: MULTIVITAMINS, THERA 1 EACH TAB PO SCH (12:11)
[2016-10-23] MEDS: HYDROcodone/APAP 5-325MG 1 EACH TAB PO PRN ×2 (12:13→20:00)
--- NOTE | 2016-10-23 14:54 | P.PN ---
Subjective 36-year-old female being seen on rounds this morning sitting up in bed. There is an improvement in the left thigh tenderness with decreased cellulitis involving the left thigh. There is no increase in redness from the reference markings patient states she's noted improvement. Currently has a dressing on to the left upper thigh Objective - Vital Signs Vital signs: Vital Signs Temp 97.1 F L 10/23/16 12:26 Pulse 68 10/23/16 12:26 Resp 16 10/23/16 12:26 BP 120/72 10/23/16 12:26 Pulse Ox 97 10/23/16 12:26 Intake & Output 10/22/16 10/23/16 10/23/16 18:59 06:59 18:59 Intake Total 600 1000 980 Balance 600 1000 980 Intake: Oral 600 1000 980 Other: Voiding Method Toilet Toilet # Voids 1 1 - Exam GENERAL APPEARANCE: The patient is alert, oriented, in no acute distress. VITAL SIGNS: Reviewed HEENT: Head is normocephalic and atraumatic. Pupils are equal and reactive. The nares are patent. Oropharynx is clear without lesions. NECK: Supple without lymphadenopathy. Traches midline. HEART: S1, S2. Regular rate and rhythm. No murmur noted denying chest pain LUNGS: No crackles or wheezes are heard. Adequate air movement bilaterally on room air ABDOMEN: Soft, obese nontender, nondistended with good bowel sounds. No peritoneal signs. No palpable organomegaly or masses. EXTREMITIES: Normal skin color and turgor. No cyanosis, rash, ulceration, clubbing or edema. Radial pedal pulses are 2/4 bilaterally. Dressing to the left upper thigh dry decreased redness improve cellulitis involving the left upper thigh NEUROLOGICAL: No focal deficits. Strength and sensation are grossly intact. - Labs CBC & Chem 7: 10/21/16 06:24 10/21/16 06:24 Labs: Microbiology - Last 24 Hours (Table) 10/21/16 19:35 Gram Stain - Preliminary Thigh - Left Wound Culture - Preliminary Presumptive Staph aureus 10/20/16 14:25 Blood Culture - Preliminary Blood No Growth after 48 hours Assessment and Plan Plan: Impression Present on admission cellulitis and abscess involving left upper thigh Status post incision and drainage of the left abscess Obesity BMI 37 Plan Continue recommendations by infectious disease defer to Continue wound care by infectious disease defer to Pain control Repeat labs in the morning DVT and GI prophylaxis Will follow with you addressing surgical issues as they arise The above impression and plan of care have been discussed and directed by signing physician. Leanna Leahy nurse practitioner acting as scribe for signing physician.
[2016-10-23] MEDS: LACTATED RINGERS 1,000 ML IV SCH (16:29)
--- NOTE | 2016-10-23 17:31 | P.PN ---
Subjective Date of service 10/23/2016 Progress note being dictated for Dr. Elizabeth. Interval history: This is a 36-year-old female admitted with left thigh abscess/ cellulitis. Evaluated by both infectious disease and surgery, recommendations noted. Better, slow progress. Afebrile. Preliminary wound culture presumptive staph. Complains of increased pressure at wound site with walking. Denies chest pain, palpitations. Objective - Vital Signs Vital signs: Vital Signs Temp 98 F 10/23/16 16:32 Pulse 61 10/23/16 16:32 Resp 20 10/23/16 16:32 BP 117/63 10/23/16 16:32 Pulse Ox 97 10/23/16 16:32 Intake & Output 10/22/16 10/23/16 10/23/16 18:59 06:59 18:59 Intake Total 600 1000 2980 Balance 600 1000 2980 Intake: Oral 600 1000 2980 Other: Voiding Method Toilet Toilet # Voids 1 1 3 - Exam PHYSICAL EXAM: VITAL SIGNS: As above GENERAL: Sitting up in bed, no acute distress HEENT: Conjunctivae normal. eyes normal. NECK: No JVD. No thyroid enlargement. No LNs CARDIOVASCULAR: S1, S2 muffled. No murmur RESPIRATION: Breath sounds diminished in the bases. No rhonchi or crackles. No bronchial breathing. ABDOMEN: Soft, nontender . No guarding. no masses palpable. No ascites, No hepatosplenomegaly.Bowel sounds heard. LEGS: Left leg-thigh site tender, swelling and erythema slowly improving. PSYCHIATRY: Alert and oriented -3, mood and affect normal. NERVOUS SYSTEM: Cranial N 2-12 grossly normal. Moves all 4 limbs. No focal deficits. No sensory deficit. Microbiology 10/20/16 14:25 Blood Blood Culture - Preliminary No Growth after 72 hours 10/21/16 19:35 Thigh - Left Gram Stain - Preliminary 10/21/16 19:35 Thigh - Left Wound Culture - Preliminary Presumptive Staph aureus - Labs CBC & Chem 7: 10/21/16 06:24 10/21/16 06:24 Labs: Microbiology - Last 24 Hours (Table) 10/20/16 14:25 Blood Culture - Preliminary Blood No Growth after 72 hours 10/21/16 19:35 Gram Stain - Preliminary Thigh - Left Wound Culture - Preliminary Presumptive Staph aureus Assessment and Plan Plan: 1. Left thigh abscess with surrounding cellulitis, with early sepsis status post I&D. Preliminary wound cultures reporting presumptive staph. 2. Seizure disorder 3.History of vagus nerve stimulation implant 4. History of nicotine dependence Plan: Continue on current medication regime ,monitoring and symptomatic treatment. Close monitoring of cultures. CT of the left thigh and groin, ordered. R/O abscess. Prognosis guarded. Further recommendations to follow. The impression and plan of care has been dictated as directed. : I performed a H&P examination of this patient and discussed the same with the dictator. I agree with the dictator's note. Any additional findings/opinions/ etc. will be noted.
--- NOTE | 2016-10-23 17:31 | CT ---
EXAMINATION TYPE: CT lower extremity LT wo con DATE OF EXAM: 10/23/2016 COMPARISON: NONE HISTORY: Left inner thigh redness and swelling. CT DLP: 1281.8 mGycm Automated exposure control for dose reduction was used. FINDINGS: Multiple axial sections were obtained from the acetabulum to the distal femur with no contrast. There is a 2 x 1 cm area of increased density in the medial subcutaneous fat of the mid medial thigh. There is a small air bubble. I see no drainable fluid collection. Muscle bundles appear intact. The acetabulum is intact. I see no focal bone destruction. Femur and hip joint appear normal. Knee joint is intact. There is no evidence of a hernia. I see no inguinal adenopathy. There is mild stranding in the subcutaneous fat over the posterior lateral lower thigh. IMPRESSION: SMALL SUBCUTANEOUS MASS IN THE MEDIAL MID THIGH CONSISTENT WITH A PHLEGMON. SUBCUTANEOUS FAT STRANDING ON THE POSTERIOR AND LATERAL THIGH IS NONSPECIFIC AND COULD RELATE TO INFL AMMATORY PROCESS. NO DRAINABLE FLUID COLLECTIONS SEEN.
[2016-10-23 19:13] LABS: Non-African American GFR(MDRD) 60 (>60 ml/min/1.73 sqM)
[2016-10-23] MEDS: HYDROmorphone 1 MG/ML 1 ML SYRINGE IVP PRN (21:13)
--- NOTE | 2016-10-23 21:14 | P.PN ---
Subjective Principal diagnosis: Left thigh abscess 6 year old female presents to hospital with a 5 day history of increasing pain and swelling to the medial aspect of her left thigh. The patient relates that she developed a pimple-like process in the area. She thought she had a bug bite. She manipulated it significantly at home. She was never able to get any material out of the site. Then it certainly increased in size swelling erythema pain. Consultation presented to the emergency center where she was on evidence of an abscess. It was incised and drained emergency center and packed. Because of concerns of the abscess the infectious diseases consultation was requested. At this time is possibly related to site is still very tender. But she's not having high-grade fevers chills rigors or sweats. Abdomen the pain at that site she is not having other acute complaints at this time. Denies other problems like this in the past. Patient is feeling somewhat better today. Still having significant pain and discomfort in the manipulation from the packing. Extensive erythema starting to improve. And she is not having high-grade fevers chills or rigors. Objective - Vital Signs Vital signs: Vital Signs Temp 98 F 10/23/16 16:32 Pulse 61 10/23/16 16:32 Resp 20 10/23/16 16:32 BP 117/63 10/23/16 16:32 Pulse Ox 97 10/23/16 16:32 Intake & Output 10/23/16 10/23/16 10/24/16 06:59 18:59 06:59 Intake Total 1000 2980 Balance 1000 2980 Intake: Oral 1000 2980 Other: Voiding Method Toilet Toilet # Voids 1 3 - Exam 36-year-old woman who is mildly uncomfortable because of the abscess on her left thigh. HEENT: Anicteric conjunctiva are pink and moist nasal mucosa grossly intact without significant lesions, there is no thrush. Neck: The neck is supple without significant lymphadenopathy or thyromegaly. Lungs: Good bilateral air entry without significant crackles or wheezing. There is no significant bronchial sounds. There is no egophony or dullness. Heart: Regular rate and rhythm with an audible S1-S2, no S3 no S4. There is no significant murmur click or rub, PMI was nondisplaced. Abdomen: Positive bowel sounds soft and nontender without palpable masses or organomegaly. There was no guarding or rebound. Extremities: The upper extremities have excellent pulses they are symmetric, no significant petechiae or telangiectasia. No splinter hemorrhages were noted. The right leg is nonacute difficulties. The left lower extremity shows evidence of the improved swelling, erythema and tenderness of the medial thigh.. Is incised and drained and is still very tender. There is a small amount of seropurulent material being expressed at this time which is very tender. There is no significant left inguinal lymphadenopathy. There is no significant ascending lymphangitis. No other lesions are seen at this point in time on the skin. Neuro: Awake alert oriented to person place and time. There are no acute new gross focal sensory motor deficits. - Labs CBC & Chem 7: 10/21/16 06:24 10/23/16 18:24 Labs: Microbiology - Last 24 Hours (Table) 10/21/16 19:35 Gram Stain - Final Thigh - Left Wound Culture - Final Staphylococcus aureus 10/20/16 14:25 Blood Culture - Preliminary Blood No Growth after 72 hours Laboratory Results WBC 5.6 k/uL (3.8-10.6) 10/21/16 06:24 RBC 3.91 m/uL (3.80-5.40) 10/21/16 06:24 Hgb 11.5 gm/dL (11.4-16.0) 10/21/16 06:24 Hct 34.1 % (34.0-46.0) 10/21/16 06:24 MCV 87.4 fL (80.0-100.0) 10/21/16 06:24 MCH 29.6 pg (25.0-35.0) 10/21/16 06:24 MCHC 33.8 g/dL (31.0-37.0) 10/21/16 06:24 RDW 12.1 % (11.5-15.5) 10/21/16 06:24 Plt Count 254 k/uL (150-450) 10/21/16 06:24 Neutrophils % 67 % 10/21/16 06:24 Lymphocytes % 23 % 10/21/16 06:24 Monocytes % 6 % 10/21/16 06:24 Eosinophils % 2 % 10/21/16 06:24 Basophils % 0 % 10/21/16 06:24 Neutrophils # 3.7 k/uL (1.3-7.7) 10/21/16 06:24 Lymphocytes # 1.3 k/uL (1.0-4.8) 10/21/16 06:24 Monocytes # 0.4 k/uL (0-1.0) 10/21/16 06:24 Eosinophils # 0.1 k/uL (0-0.7) 10/21/16 06:24 Basophils # 0.0 k/uL (0-0.2) 10/21/16 06:24 Sodium 141 mmol/L (137-145) 10/21/16 06:24 Potassium 3.9 mmol/L (3.5-5.1) 10/21/16 06:24 Chloride 113 mmol/L (98-107) H 10/21/16 06:24 Carbon Dioxide 21 mmol/L (22-30) L 10/21/16 06:24 Anion Gap 7 mmol/L 10/21/16 06:24 BUN 12 mg/dL (7-17) 10/21/16 06:24 Creatinine 1.04 mg/dL (0.52-1.04) 10/23/16 18:24 Est GFR (MDRD) Af Amer >60 (>60 ml/min/1.73 sqM) 10/23/16 18:24 Est GFR (MDRD) Non-Af 60 (>60 ml/min/1.73 sqM) 10/23/16 18:24 Glucose 95 mg/dL (74-99) 10/21/16 06:24 Plasma Lactic Acid Adam 0.8 mmol/L (0.7-2.0) 10/20/16 14:25 Calcium 8.4 mg/dL (8.4-10.2) 10/21/16 06:24 Magnesium 2.0 mg/dL (1.6-2.3) 10/21/16 06:24 Urine Color Yellow 10/20/16 21:30 Urine Appearance Cloudy (Clear) H 10/20/16 21:30 Urine pH 6.0 (5.0-8.0) 10/20/16 21:30 Ur Specific [place] 1.017 (1.001-1.035) 10/20/16 21:30 Urine Protein Negative (Negative) 10/20/16 21:30 Urine Glucose (UA) Negative (Negative) 10/20/16 21:30 Urine Ketones Negative (Negative) 10/20/16 21:30 Urine Blood Negative (Negative) 10/20/16 21:30 Urine Nitrite Negative (Negative) 10/20/16 21:30 Urine Bilirubin Negative (Negative) 10/20/16 21:30 Urine Urobilinogen <2.0 mg/dL (<2.0) 10/20/16 21:30 Ur Leukocyte Esterase Moderate (Negative) H 10/20/16 21:30 Urine RBC 5 /hpf (0-5) 10/20/16 21:30 Urine WBC 3 /hpf (0-5) 10/20/16 21:30 Ur Squamous Epith Cells 10 /hpf (0-4) H 10/20/16 21:30 Urine Bacteria Few /hpf (None) H 10/20/16 21:30 Urine Mucus Occasional /hpf (None) H 10/20/16 21:30 Vancomycin Trough 11.1 ug/mL 10/23/16 18:24 Urine Opiates Screen Not Detected (NotDetected) 10/20/16 21:30 Ur Oxycodone Screen Not Detected (NotDetected) 10/20/16 21:30 Urine Methadone Screen Not Detected (NotDetected) 10/20/16 21:30 Ur Propoxyphene Screen Not Detected (NotDetected) 10/20/16 21:30 Ur Barbiturates Screen Not Detected (NotDetected) 10/20/16 21:30 U Tricyclic Antidepress Not Detected (NotDetected) 10/20/16 21:30 Ur Phencyclidine Scrn Not Detected (NotDetected) 10/20/16 21:30 Ur Amphetamines Screen Not Detected (NotDetected) 10/20/16 21:30 U Methamphetamines Scrn Not Detected (NotDetected) 10/20/16 21:30 U Benzodiazepines Scrn Not Detected (NotDetected) 10/20/16 21:30 Urine Cocaine Screen Not Detected (NotDetected) 10/20/16 21:30 U Marijuana (THC) Screen Not Detected (NotDetected) 10/20/16 21:30 Microbiology 10/21/16 19:35 Thigh - Left Gram Stain - Final 10/21/16 19:35 Thigh - Left Wound Culture - Final Staphylococcus aureus 10/20/16 14:25 Blood Blood Culture - Preliminary No Growth after 72 hours Assessment and Plan (1) Abscess Narrative/Plan: 36-year-old female presents to the hospital with a five-day history of increasing pain and swelling to the left thigh. She developed a pimple and with manipulation it did not improved. Nausea distinct abscess area in the left thigh that had an I&D done in the emergency center. She's been seen by surgery who is one monitoring and may consider further decision drainage depending on his progress. For antibiotic therapy will add vancomycin to Ancef with concerns that this could be an MRSA infection given the presentation. Local wound care will be changed to Aquacel silver rope packed into the area. Local wound care will hopefully help the discomfort. Toradol will be added for some pain control. Multivitamin is added to help her overall wound healing. She believes she is up-to-date with her tetanus vaccine already. Is feeling slightly better today. The significant erythema is improved. Drainage is improved. Toradol is helping her pain. Follow-up imaging of the thigh has been requested to ensure she does not need further surgical drainage. Especially because she is still having such ongoing significant tenderness. Culture is now final. Staph aureus has been isolated. Not MRSA. Vancomycin is discontinued. Continue high dose Ancef Status: Acute (2) Cellulitis and abscess of left leg Status: Acute
[2016-10-24] MEDS: KETOROLAC 30 MG/ML 1 ML VIAL IVP SCH ×4 (00:27→18:06)
[2016-10-24] MEDS: ceFAZolin 2 GM in SODIUM CHLORIDE 0.9% 100 ML IVPB SCH ×4 (00:27→16:19)
[2016-10-24] MEDS: HYDROcodone/APAP 5-325MG 1 EACH TAB PO PRN ×2 (08:14→20:06)
[2016-10-24] MEDS: TOPIRAMATE 100 MG TAB PO SCH ×2 (08:25→21:38)
[2016-10-24] MEDS: lamoTRIgine 100 MG TAB PO SCH ×4 (08:28→21:38)
[2016-10-24] MEDS: HEPARIN SODIUM,PORCINE 5,000 UNIT/ML 1 ML VIAL SQ SCH ×2 (08:30→21:11)
[2016-10-24] MEDS: LACOSAMIDE 50 MG TABLET PO SCH ×2 (11:13→21:11)
[2016-10-24] MEDS: MULTIVITAMINS, THERA 1 EACH TAB PO SCH (12:23)
--- NOTE | 2016-10-24 15:33 | P.PN ---
Subjective Pleasant 36-year-old female being seen currently sitting up in bed. Patient states is an improvement in the discomfort in the left upper thigh continues to report having a tingly sensation on the left upper thigh currently has a dressing to the left upper thigh which is dry. Patient did have a CAT scan of the lower extremity on the left without contrast done on October 23 the report indicates subcutaneous fat stranding on the posterior and lateral thigh no drainable fluid collection seen small subcutaneous mass in the medial mid thigh consistent with a phlegom Patient's been followed by surgical service for left inner thigh redness and swelling with cellulitis and abscess. Objective - Vital Signs Vital signs: Vital Signs Temp 97.9 F 10/24/16 12:57 Pulse 67 10/24/16 12:57 Resp 19 10/24/16 12:57 BP 119/71 10/24/16 12:57 Pulse Ox 100 10/24/16 12:57 Intake & Output 10/23/16 10/24/16 10/24/16 18:59 06:59 18:59 Intake Total 2980 600 Balance 2980 600 Intake: Oral 2980 600 Other: Voiding Method Toilet # Voids 3 1 1 - Exam Physical exam 36-year-old female sitting up in bed no acute distress Lungs essentially clear adequate air movement on room air Heart S1-S2 audible regular denying chest pain abdomen obese soft nontender no nausea no vomiting no frequent stooling Extremities no edema to the bilateral lower extremities there is a significant improvement left upper thigh decreased redness decreased tenderness dressing left upper thigh dry - Labs CBC & Chem 7: 10/21/16 06:24 10/23/16 18:24 Labs: Microbiology - Last 24 Hours (Table) 10/21/16 19:35 Gram Stain - Final Thigh - Left Wound Culture - Final Staphylococcus aureus 10/20/16 14:25 Blood Culture - Preliminary Blood No Growth after 72 hours Assessment and Plan Plan: Impression Present on admission cellulitis and abscess involving left upper thigh Status post incision and drainage of the left abscess Obesity BMI 37 CAT scan left inner thigh with shows no drainable fluid collection noted Plan Continue recommendations by infectious disease defer to Continue wound care by infectious disease defer to Pain control Repeat labs in the morning DVT and GI prophylaxis Will follow with you addressing surgical issues as they arise The above impression and plan of care have been discussed and directed by signing physician. Leanna Leahy nurse practitioner acting as scribe for signing physician.
[2016-10-24] MEDS: HYDROmorphone 1 MG/ML 1 ML SYRINGE IVP PRN (21:08)
--- NOTE | 2016-10-24 21:09 | P.PN ---
Subjective Principal diagnosis: Left thigh abscess 6 year old female presents to hospital with a 5 day history of increasing pain and swelling to the medial aspect of her left thigh. The patient relates that she developed a pimple-like process in the area. She thought she had a bug bite. She manipulated it significantly at home. She was never able to get any material out of the site. Then it certainly increased in size swelling erythema pain. Consultation presented to the emergency center where she was on evidence of an abscess. It was incised and drained emergency center and packed. Because of concerns of the abscess the infectious diseases consultation was requested. At this time is possibly related to site is still very tender. But she's not having high-grade fevers chills rigors or sweats. Abdomen the pain at that site she is not having other acute complaints at this time. Denies other problems like this in the past. Patient is feeling somewhat better today. However she is very anxious when the packing is manipulated. She still has significant pain. It though is improved from admission. Extensive erythema starting to improve. And she is not having high-grade fevers chills or rigors. Objective - Vital Signs Vital signs: Vital Signs Temp 98.0 F 10/24/16 16:41 Pulse 60 10/24/16 16:41 Resp 20 10/24/16 16:41 BP 122/76 10/24/16 16:41 Pulse Ox 97 10/24/16 16:41 Intake & Output 10/24/16 10/24/16 10/25/16 06:59 18:59 06:59 Intake Total 600 Balance 600 Intake: Oral 600 Other: # Voids 1 1 - Exam 36-year-old woman who is mildly uncomfortable because of the abscess on her left thigh. HEENT: Anicteric conjunctiva are pink and moist nasal mucosa grossly intact without significant lesions, there is no thrush. Neck: The neck is supple without significant lymphadenopathy or thyromegaly. Lungs: Good bilateral air entry without significant crackles or wheezing. There is no significant bronchial sounds. There is no egophony or dullness. Heart: Regular rate and rhythm with an audible S1-S2, no S3 no S4. There is no significant murmur click or rub, PMI was nondisplaced. Abdomen: Positive bowel sounds soft and nontender without palpable masses or organomegaly. There was no guarding or rebound. Extremities: The upper extremities have excellent pulses they are symmetric, no significant petechiae or telangiectasia. No splinter hemorrhages were noted. The right leg is nonacute difficulties. The left lower extremity shows evidence of the improved swelling, erythema and tenderness of the medial thigh. There is a small amount of seropurulent material being expressed at this time which is less tender. There is no significant left inguinal lymphadenopathy. There is no significant ascending lymphangitis. No other lesions are seen at this point in time on the skin. Neuro: Awake alert oriented to person place and time. There are no acute new gross focal sensory motor deficits. - Labs CBC & Chem 7: 10/21/16 06:24 10/23/16 18:24 Labs: Microbiology - Last 24 Hours (Table) 10/20/16 14:25 Blood Culture - Preliminary Blood No Growth after 96 hours 10/21/16 19:35 Gram Stain - Final Thigh - Left Wound Culture - Final Staphylococcus aureus Laboratory Results WBC 5.6 k/uL (3.8-10.6) 10/21/16 06:24 RBC 3.91 m/uL (3.80-5.40) 10/21/16 06:24 Hgb 11.5 gm/dL (11.4-16.0) 10/21/16 06:24 Hct 34.1 % (34.0-46.0) 10/21/16 06:24 MCV 87.4 fL (80.0-100.0) 10/21/16 06:24 MCH 29.6 pg (25.0-35.0) 10/21/16 06:24 MCHC 33.8 g/dL (31.0-37.0) 10/21/16 06:24 RDW 12.1 % (11.5-15.5) 10/21/16 06:24 Plt Count 254 k/uL (150-450) 10/21/16 06:24 Neutrophils % 67 % 10/21/16 06:24 Lymphocytes % 23 % 10/21/16 06:24 Monocytes % 6 % 10/21/16 06:24 Eosinophils % 2 % 10/21/16 06:24 Basophils % 0 % 10/21/16 06:24 Neutrophils # 3.7 k/uL (1.3-7.7) 10/21/16 06:24 Lymphocytes # 1.3 k/uL (1.0-4.8) 10/21/16 06:24 Monocytes # 0.4 k/uL (0-1.0) 10/21/16 06:24 Eosinophils # 0.1 k/uL (0-0.7) 10/21/16 06:24 Basophils # 0.0 k/uL (0-0.2) 10/21/16 06:24 Sodium 141 mmol/L (137-145) 10/21/16 06:24 Potassium 3.9 mmol/L (3.5-5.1) 10/21/16 06:24 Chloride 113 mmol/L (98-107) H 10/21/16 06:24 Carbon Dioxide 21 mmol/L (22-30) L 10/21/16 06:24 Anion Gap 7 mmol/L 10/21/16 06:24 BUN 12 mg/dL (7-17) 10/21/16 06:24 Creatinine 1.04 mg/dL (0.52-1.04) 10/23/16 18:24 Est GFR (MDRD) Af Amer >60 (>60 ml/min/1.73 sqM) 10/23/16 18:24 Est GFR (MDRD) Non-Af 60 (>60 ml/min/1.73 sqM) 10/23/16 18:24 Glucose 95 mg/dL (74-99) 10/21/16 06:24 Plasma Lactic Acid Adam 0.8 mmol/L (0.7-2.0) 10/20/16 14:25 Calcium 8.4 mg/dL (8.4-10.2) 10/21/16 06:24 Magnesium 2.0 mg/dL (1.6-2.3) 10/21/16 06:24 Urine Color Yellow 10/20/16 21:30 Urine Appearance Cloudy (Clear) H 10/20/16 21:30 Urine pH 6.0 (5.0-8.0) 10/20/16 21:30 Ur Specific [place] 1.017 (1.001-1.035) 10/20/16 21:30 Urine Protein Negative (Negative) 10/20/16 21:30 Urine Glucose (UA) Negative (Negative) 10/20/16 21:30 Urine Ketones Negative (Negative) 10/20/16 21:30 Urine Blood Negative (Negative) 10/20/16 21:30 Urine Nitrite Negative (Negative) 10/20/16 21:30 Urine Bilirubin Negative (Negative) 10/20/16 21:30 Urine Urobilinogen <2.0 mg/dL (<2.0) 10/20/16 21:30 Ur Leukocyte Esterase Moderate (Negative) H 10/20/16 21:30 Urine RBC 5 /hpf (0-5) 10/20/16 21:30 Urine WBC 3 /hpf (0-5) 10/20/16 21:30 Ur Squamous Epith Cells 10 /hpf (0-4) H 10/20/16 21:30 Urine Bacteria Few /hpf (None) H 10/20/16 21:30 Urine Mucus Occasional /hpf (None) H 10/20/16 21:30 Vancomycin Trough 11.1 ug/mL 10/23/16 18:24 Urine Opiates Screen Not Detected (NotDetected) 10/20/16 21:30 Ur Oxycodone Screen Not Detected (NotDetected) 10/20/16 21:30 Urine Methadone Screen Not Detected (NotDetected) 10/20/16 21:30 Ur Propoxyphene Screen Not Detected (NotDetected) 10/20/16 21:30 Ur Barbiturates Screen Not Detected (NotDetected) 10/20/16 21:30 U Tricyclic Antidepress Not Detected (NotDetected) 10/20/16 21:30 Ur Phencyclidine Scrn Not Detected (NotDetected) 10/20/16 21:30 Ur Amphetamines Screen Not Detected (NotDetected) 10/20/16 21:30 U Methamphetamines Scrn Not Detected (NotDetected) 10/20/16 21:30 U Benzodiazepines Scrn Not Detected (NotDetected) 10/20/16 21:30 Urine Cocaine Screen Not Detected (NotDetected) 10/20/16 21:30 U Marijuana (THC) Screen Not Detected (NotDetected) 10/20/16 21:30 Microbiology 10/20/16 14:25 Blood Blood Culture - Preliminary No Growth after 96 hours 10/21/16 19:35 Thigh - Left Gram Stain - Final 10/21/16 19:35 Thigh - Left Wound Culture - Final Staphylococcus aureus Assessment and Plan (1) Abscess Narrative/Plan: 36-year-old female presents to the hospital with a five-day history of increasing pain and swelling to the left thigh. She developed a pimple and with manipulation it did not improved. Nausea distinct abscess area in the left thigh that had an I&D done in the emergency center. She's been seen by surgery who is one monitoring and may consider further decision drainage depending on his progress. For antibiotic therapy will add vancomycin to Ancef with concerns that this could be an MRSA infection given the presentation. Local wound care will be changed to Aquacel silver rope packed into the area. Local wound care will hopefully help the discomfort. Toradol will be added for some pain control. Multivitamin is added to help her overall wound healing. She believes she is up-to-date with her tetanus vaccine already. Is feeling slightly better today. The significant erythema is improved. Drainage is improved. Toradol is helping her pain. Follow-up imaging of the thigh has been requested to ensure she does not need further surgical drainage. Especially because she is still having such ongoing significant tenderness. Culture is now final. Staph aureus has been isolated. Not MRSA. Vancomycin was discontinued. Continue high dose Ancef Does show further improvement today. Swelling and induration of deftly improved. She still very anxious about going home and that the dressing changes so painful. We'll address the primary care team some oral pain medication and can be Marlena the time of her dressing change. She was soon timeout her Toradol dosing any be switched to ibuprofen or similar. She very for discharge home tomorrow if no other changes. Keflex 500 mg every 6 hours should be utilized for 7 days at discharge. Status: Acute (2) Cellulitis and abscess of left leg Status: Acute
[2016-10-25] MEDS: ceFAZolin 2 GM in SODIUM CHLORIDE 0.9% 100 ML IVPB SCH ×2 (00:20→08:25)
[2016-10-25] MEDS: KETOROLAC 30 MG/ML 1 ML VIAL IVP SCH ×3 (00:20→12:10)
[2016-10-25] MEDS: LACOSAMIDE 50 MG TABLET PO SCH (08:24)
[2016-10-25] MEDS: HEPARIN SODIUM,PORCINE 5,000 UNIT/ML 1 ML VIAL SQ SCH (08:25)
[2016-10-25] MEDS: lamoTRIgine 100 MG TAB PO SCH ×2 (08:26→08:27)
[2016-10-25] MEDS: TOPIRAMATE 100 MG TAB PO SCH (08:27)
--- NOTE | 2016-10-25 09:59 | P.PN ---
Subjective 36-year-old female being seen on rounds this morning is up ambulating from the bed to the bathroom. Patient states that she continues to have some left upper thigh discomfort has improved. She is being followed by infectious disease Dr. Acuña being treated for cellulitis abscess left leg. Currently has packing in the left upper thigh abscess. Scant amount of drainage noted. Local wound care being directed by infectious disease Objective - Vital Signs Vital signs: Vital Signs Temp 96.9 F L 10/25/16 00:20 Pulse 75 10/25/16 00:20 Resp 18 10/25/16 00:20 BP 115/79 10/25/16 00:20 Pulse Ox 98 10/25/16 00:20 Intake & Output 10/24/16 10/25/16 10/25/16 18:59 06:59 18:59 Intake Total 600 Balance 600 Intake: Oral 600 Other: # Voids 1 1 - Exam Physical exam 36-year-old female sitting up in bed no acute distress talkative pleasant states there is an improvement in the discomfort in the left upper thigh Lungs essentially clear adequate air movement on room air Heart S1-S2 audible regular denying chest pain abdomen obese soft nontender no nausea no vomiting no frequent stooling Extremities no edema to the bilateral lower extremities there is a significant improvement left upper thigh decreased redness decreased tenderness dressing left upper thigh dry packing in place - Labs CBC & Chem 7: 10/21/16 06:24 10/23/16 18:24 Labs: Microbiology - Last 24 Hours (Table) 10/20/16 14:25 Blood Culture - Preliminary Blood No Growth after 96 hours Assessment and Plan Plan: Impression Present on admission cellulitis and abscess involving left upper thigh Status post incision and drainage of the left abscess Obesity BMI 37 CAT scan left inner thigh with shows no drainable fluid collection noted Plan Continue recommendations by infectious disease defer to Continue wound care by infectious disease defer to Pain control Surgical perspective patient is felt to be clinically stable and appropriate proceed with a discharge defer to the timing of the discharge to the attending DVT and GI prophylaxis Will follow with you addressing surgical issues as they arise The above impression and plan of care have been discussed and directed by signing physician. Leanna Leahy nurse practitioner acting as scribe for signing physician.
[2016-10-25 11:26] VITALS: BP 129/76; PULSE 66; RESP 20; TEMP 98.3
[2016-10-25] MEDS: MULTIVITAMINS, THERA 1 EACH TAB PO SCH (12:10)
[2016-10-25] MEDS: HYDROcodone/APAP 5-325MG 1 EACH TAB PO PRN (12:10)
--- NOTE | 2016-10-25 17:10 | P.PN ---
Subjective Progress note being dictated for Dr. Valerio. 10/23/2016 Interval history: This is a 36-year-old female admitted with left thigh abscess/cellulitis. Evaluated by both infectious disease and surgery, recommendations noted. Better, slow progress. Afebrile. Preliminary wound culture presumptive staph. Complains of increased pressure at wound site with walking. Denies chest pain, palpitations. 10/24/2016 affected site much improved. Maintained on IV antibiotics as per ID. Afebrile. Wound culture reporting MSSA. CAT scan of left thigh and groin reported subcutaneous fat stranding of the posterior lateral thigh with no drainable fluid collection, phlegom medial mid thigh; reviewed by surgery with no further surgical intervention recommended. Objective - Vital Signs Vital signs: Vital Signs Temp 97.9 F 10/24/16 12:57 Pulse 67 10/24/16 12:57 Resp 19 10/24/16 12:57 BP 119/71 10/24/16 12:57 Pulse Ox 100 10/24/16 12:57 Intake & Output 10/23/16 10/24/16 10/24/16 18:59 06:59 18:59 Intake Total 2980 600 Balance 2980 600 Intake: Oral 2980 600 Other: Voiding Method Toilet # Voids 3 1 1 - Exam PHYSICAL EXAM: VITAL SIGNS: As above GENERAL: Sitting up in bed, no acute distress HEENT: Conjunctivae normal. eyes normal. NECK: No JVD. No thyroid enlargement. No LNs CARDIOVASCULAR: S1, S2 muffled. No murmur RESPIRATION: Breath sounds diminished in the bases. No rhonchi or crackles. No bronchial breathing. ABDOMEN: Soft, nontender . No guarding. no masses palpable. No ascites, No hepatosplenomegaly.Bowel sounds heard. LEGS: Left leg-thigh site decreased tenderness, decreased swelling and erythema , currently no drainage. PSYCHIATRY: Alert and oriented -3, mildly anxious. NERVOUS SYSTEM: Cranial N 2-12 grossly normal. Moves all 4 limbs. No focal deficits. No sensory deficit. Microbiology 10/20/16 14:25 Blood Blood Culture - Preliminary No Growth after 120 hours 10/21/16 19:35 Thigh - Left Gram Stain - Final 10/21/16 19:35 Thigh - Left Wound Culture - Final Staphylococcus aureus - Labs CBC & Chem 7: 10/21/16 06:24 10/23/16 18:24 Labs: Microbiology - Last 24 Hours (Table) 10/21/16 19:35 Gram Stain - Final Thigh - Left Wound Culture - Final Staphylococcus aureus 10/20/16 14:25 Blood Culture - Preliminary Blood No Growth after 72 hours Assessment and Plan Plan: 1. Left thigh abscess with surrounding cellulitis, with early sepsis status post I&D. wound cultures reporting MSSA. 2. Seizure disorder 3.History of vagus nerve stimulation implant 4. History of nicotine dependence Plan: Continue on current medication regime ,monitoring and symptomatic treatment. Maintain IV antibiotics. CT of the left thigh and groin reviewed by surgery with no further surgical intervention recommended. Maintain supportive care. Discharge planning in progress for tomorrow-discussed with patient. The impression and plan of care has been dictated as directed. : I performed a H&P examination of this patient and discussed the same with the dictator. I agree with the dictator's note. Any additional findings/opinions/ etc. will be noted.
--- NOTE | 2016-10-25 17:17 | P.DS ---
Providers Date of admission: 10/20/16 16:50 Expected date of discharge: 10/25/16 Attending physician: Angel Valerio Consults: 10/20/16 16:52 Consult Physician Routine Consulting Provider: Orlin Reyes Consult Reason/Comments: cellulitis, abscess Do you want consulting provider notified?: Yes 10/20/16 19:03 Consult Physician Routine Consulting Provider: Katelyn Cunningham Consult Reason/Comments: VNS implant, to stimulate the vagus nerve for seizures Do you want consulting provider notified?: Yes 10/20/16 19:04 Consult Physician Routine Consulting Provider: Ascencion Kumar Consult Reason/Comments: sepsis Do you want consulting provider notified?: Yes Primary care physician: Stated None Dr. Henderson Hospital Course: Final Diagnoses: 1. Left thigh abscess with surrounding cellulitis, with early sepsis status post I&D. wound cultures reporting MSSA. 2. Seizure disorder 3.History of vagus nerve stimulation implant 4. History of nicotine dependence Hospital course :This is a 36-year-old female admitted with left thigh abscess/ cellulitis. Evaluated by both infectious disease and surgery. Maintained on IV antibiotics as per ID. Preliminary wound culture presumptive staph. Final culture not MRSA; MSSA. CAT scan of left thigh and groin reported subcutaneous fat stranding of the posterior lateral thigh with no drainable fluid collection , phlegom medial mid thigh; reviewed by surgery with no further surgical intervention recommended. Cleared by all consults for discharge. Patient is being discharged home in a stable condition with guarded prognosis. The impression and plan of care has been dictated as directed as a scribe. : I performed a H&P examination of this patient and discussed the same with the dictator. I agree with the dictator's note. Any additional findings/opinions/ etc. will be noted. Patient Condition at Discharge: Stable Plan - Discharge Summary New Discharge Prescriptions: New Cephalexin [Keflex] 500 mg PO Q6HR #28 cap HYDROcodone/APAP 7.5-325MG [[place] 7.5-325] 1 tab PO Q6HR PRN #20 tab PRN Reason: Pain Multivitamins, Thera [Multivitamin (formulary)] 1 each PO DAILY@1200 tab Ibuprofen [Motrin] 600 mg PO Q6HR PRN #20 tab PRN Reason: Pain Continue Lacosamide [Vimpat] 200 mg PO BID Topiramate [Topamax] 200 mg PO BID lamoTRIgine [LaMICtal] 100 mg PO BID lamoTRIgine [LaMICtal] 150 mg PO BID Discharge Medication List Lacosamide [Vimpat] 200 mg PO BID 10/20/16 [History] Topiramate [Topamax] 200 mg PO BID 10/20/16 [History] lamoTRIgine [LaMICtal] 100 mg PO BID 10/20/16 [History] lamoTRIgine [LaMICtal] 150 mg PO BID 10/20/16 [History] Cephalexin [Keflex] 500 mg PO Q6HR #28 cap 10/25/16 [Rx] HYDROcodone/APAP 7.5-325MG [[place] 7.5-325] 1 tab PO Q6HR PRN #20 tab 10/25/16 [ Rx] Ibuprofen [Motrin] 600 mg PO Q6HR PRN #20 tab 10/25/16 [Rx] Multivitamins, Thera [Multivitamin (formulary)] 1 each PO DAILY@1200 tab [Rx] Follow up Appointment(s)/Referral(s): Lin Henderson MD [REFERRING] - 3 Days (sunday, at 2:50) Ascencion Kumar MD [STAFF PHYSICIAN] - 1 Week (nov 02 at 3:45pm) Orlin Reyes MD [STAFF PHYSICIAN] - As Needed Ambulatory/Diagnostic Orders: Complete Blood Count w/diff [LAB.AMB] Time Frame: 3 Days, Location: Determined By Patient Activity/Diet/Wound Care/Special Instructions: antibx & wound care as per ID Diet: regular activity; Limited TIll FU packing wound: aquacell silver rope into the ulcer and moisten with saline and cover with abd pad. Next dressing change due on 10-26-16. Pt to medicate one hour prior to home health care arrival for dressing change. CALL FOR WORSENING SYMPTOMS, PROBLEMS OR CONCERNS. Discharge Disposition: HOME WITH HOME HEALTH SERVICES
--- NOTE | 2016-10-25 20:30 | P.PN ---
Subjective Principal diagnosis: Left thigh abscess 6 year old female presents to hospital with a 5 day history of increasing pain and swelling to the medial aspect of her left thigh. The patient relates that she developed a pimple-like process in the area. She thought she had a bug bite. She manipulated it significantly at home. She was never able to get any material out of the site. Then it certainly increased in size swelling erythema pain. Consultation presented to the emergency center where she was on evidence of an abscess. It was incised and drained emergency center and packed. Because of concerns of the abscess the infectious diseases consultation was requested. At this time is possibly related to site is still very tender. But she's not having high-grade fevers chills rigors or sweats. Abdomen the pain at that site she is not having other acute complaints at this time. Denies other problems like this in the past. Patient is feeling somewhat better today. However she is very anxious when the packing is manipulated. She still has significant pain. It though is improved over the last 48 hours Extensive erythema is markedly improved And she is not having high-grade fevers chills or rigors. Objective - Vital Signs Vital signs: Vital Signs Temp 98.3 F 10/25/16 08:45 Pulse 66 10/25/16 08:45 Resp 20 10/25/16 08:45 BP 129/76 10/25/16 08:45 Pulse Ox 100 10/25/16 08:45 Intake & Output 10/25/16 10/25/16 10/26/16 06:59 18:59 06:59 Intake Total 1200 Balance 1200 Intake: Oral 1200 Other: # Voids 1 3 - Exam 36-year-old woman who is mildly uncomfortable because of the abscess on her left thigh. HEENT: Anicteric conjunctiva are pink and moist nasal mucosa grossly intact without significant lesions, there is no thrush. Neck: The neck is supple without significant lymphadenopathy or thyromegaly. Lungs: Good bilateral air entry without significant crackles or wheezing. There is no significant bronchial sounds. There is no egophony or dullness. Heart: Regular rate and rhythm with an audible S1-S2, no S3 no S4. There is no significant murmur click or rub, PMI was nondisplaced. Abdomen: Positive bowel sounds soft and nontender without palpable masses or organomegaly. There was no guarding or rebound. Extremities: The upper extremities have excellent pulses they are symmetric, no significant petechiae or telangiectasia. No splinter hemorrhages were noted. The right leg is nonacute difficulties. The left lower extremity shows evidence of the improved swelling, erythema and tenderness of the medial thigh. There is a small amount of seropurulent material being expressed at this time which is less tender. The extensive induration is now improved There is no significant left inguinal lymphadenopathy. There is no significant ascending lymphangitis. No other lesions are seen at this point in time on the skin. Neuro: Awake alert oriented to person place and time. There are no acute new gross focal sensory motor deficits. - Labs CBC & Chem 7: 10/21/16 06:24 10/23/16 18:24 Labs: Microbiology - Last 24 Hours (Table) 10/20/16 14:25 Blood Culture - Preliminary Blood No Growth after 120 hours Laboratory Results WBC 5.6 k/uL (3.8-10.6) 10/21/16 06:24 RBC 3.91 m/uL (3.80-5.40) 10/21/16 06:24 Hgb 11.5 gm/dL (11.4-16.0) 10/21/16 06:24 Hct 34.1 % (34.0-46.0) 10/21/16 06:24 MCV 87.4 fL (80.0-100.0) 10/21/16 06:24 MCH 29.6 pg (25.0-35.0) 10/21/16 06:24 MCHC 33.8 g/dL (31.0-37.0) 10/21/16 06:24 RDW 12.1 % (11.5-15.5) 10/21/16 06:24 Plt Count 254 k/uL (150-450) 10/21/16 06:24 Neutrophils % 67 % 10/21/16 06:24 Lymphocytes % 23 % 10/21/16 06:24 Monocytes % 6 % 10/21/16 06:24 Eosinophils % 2 % 10/21/16 06:24 Basophils % 0 % 10/21/16 06:24 Neutrophils # 3.7 k/uL (1.3-7.7) 10/21/16 06:24 Lymphocytes # 1.3 k/uL (1.0-4.8) 10/21/16 06:24 Monocytes # 0.4 k/uL (0-1.0) 10/21/16 06:24 Eosinophils # 0.1 k/uL (0-0.7) 10/21/16 06:24 Basophils # 0.0 k/uL (0-0.2) 10/21/16 06:24 Sodium 141 mmol/L (137-145) 10/21/16 06:24 Potassium 3.9 mmol/L (3.5-5.1) 10/21/16 06:24 Chloride 113 mmol/L (98-107) H 10/21/16 06:24 Carbon Dioxide 21 mmol/L (22-30) L 10/21/16 06:24 Anion Gap 7 mmol/L 10/21/16 06:24 BUN 12 mg/dL (7-17) 10/21/16 06:24 Creatinine 1.04 mg/dL (0.52-1.04) 10/23/16 18:24 Est GFR (MDRD) Af Amer >60 (>60 ml/min/1.73 sqM) 10/23/16 18:24 Est GFR (MDRD) Non-Af 60 (>60 ml/min/1.73 sqM) 10/23/16 18:24 Glucose 95 mg/dL (74-99) 10/21/16 06:24 Plasma Lactic Acid Adam 0.8 mmol/L (0.7-2.0) 10/20/16 14:25 Calcium 8.4 mg/dL (8.4-10.2) 10/21/16 06:24 Magnesium 2.0 mg/dL (1.6-2.3) 10/21/16 06:24 Urine Color Yellow 10/20/16 21:30 Urine Appearance Cloudy (Clear) H 10/20/16 21:30 Urine pH 6.0 (5.0-8.0) 10/20/16 21:30 Ur Specific [place] 1.017 (1.001-1.035) 10/20/16 21:30 Urine Protein Negative (Negative) 10/20/16 21:30 Urine Glucose (UA) Negative (Negative) 10/20/16 21:30 Urine Ketones Negative (Negative) 10/20/16 21:30 Urine Blood Negative (Negative) 10/20/16 21:30 Urine Nitrite Negative (Negative) 10/20/16 21:30 Urine Bilirubin Negative (Negative) 10/20/16 21:30 Urine Urobilinogen <2.0 mg/dL (<2.0) 10/20/16 21:30 Ur Leukocyte Esterase Moderate (Negative) H 10/20/16 21:30 Urine RBC 5 /hpf (0-5) 10/20/16 21:30 Urine WBC 3 /hpf (0-5) 10/20/16 21:30 Ur Squamous Epith Cells 10 /hpf (0-4) H 10/20/16 21:30 Urine Bacteria Few /hpf (None) H 10/20/16 21:30 Urine Mucus Occasional /hpf (None) H 10/20/16 21:30 Vancomycin Trough 11.1 ug/mL 10/23/16 18:24 Urine Opiates Screen Not Detected (NotDetected) 10/20/16 21:30 Ur Oxycodone Screen Not Detected (NotDetected) 10/20/16 21:30 Urine Methadone Screen Not Detected (NotDetected) 10/20/16 21:30 Ur Propoxyphene Screen Not Detected (NotDetected) 10/20/16 21:30 Ur Barbiturates Screen Not Detected (NotDetected) 10/20/16 21:30 U Tricyclic Antidepress Not Detected (NotDetected) 10/20/16 21:30 Ur Phencyclidine Scrn Not Detected (NotDetected) 10/20/16 21:30 Ur Amphetamines Screen Not Detected (NotDetected) 10/20/16 21:30 U Methamphetamines Scrn Not Detected (NotDetected) 10/20/16 21:30 U Benzodiazepines Scrn Not Detected (NotDetected) 10/20/16 21:30 Urine Cocaine Screen Not Detected (NotDetected) 10/20/16 21:30 U Marijuana (THC) Screen Not Detected (NotDetected) 10/20/16 21:30 Microbiology 10/20/16 14:25 Blood Blood Culture - Preliminary No Growth after 120 hours 10/21/16 19:35 Thigh - Left Gram Stain - Final 10/21/16 19:35 Thigh - Left Wound Culture - Final Staphylococcus aureus Laboratory Results WBC 5.6 k/uL (3.8-10.6) 10/21/16 06:24 RBC 3.91 m/uL (3.80-5.40) 10/21/16 06:24 Hgb 11.5 gm/dL (11.4-16.0) 10/21/16 06:24 Hct 34.1 % (34.0-46.0) 10/21/16 06:24 MCV 87.4 fL (80.0-100.0) 10/21/16 06:24 MCH 29.6 pg (25.0-35.0) 10/21/16 06:24 MCHC 33.8 g/dL (31.0-37.0) 10/21/16 06:24 RDW 12.1 % (11.5-15.5) 10/21/16 06:24 Plt Count 254 k/uL (150-450) 10/21/16 06:24 Neutrophils % 67 % 10/21/16 06:24 Lymphocytes % 23 % 10/21/16 06:24 Monocytes % 6 % 10/21/16 06:24 Eosinophils % 2 % 10/21/16 06:24 Basophils % 0 % 10/21/16 06:24 Neutrophils # 3.7 k/uL (1.3-7.7) 10/21/16 06:24 Lymphocytes # 1.3 k/uL (1.0-4.8) 10/21/16 06:24 Monocytes # 0.4 k/uL (0-1.0) 10/21/16 06:24 Eosinophils # 0.1 k/uL (0-0.7) 10/21/16 06:24 Basophils # 0.0 k/uL (0-0.2) 10/21/16 06:24 Sodium 141 mmol/L (137-145) 10/21/16 06:24 Potassium 3.9 mmol/L (3.5-5.1) 10/21/16 06:24 Chloride 113 mmol/L (98-107) H 10/21/16 06:24 Carbon Dioxide 21 mmol/L (22-30) L 10/21/16 06:24 Anion Gap 7 mmol/L 10/21/16 06:24 BUN 12 mg/dL (7-17) 10/21/16 06:24 Creatinine 1.04 mg/dL (0.52-1.04) 10/23/16 18:24 Est GFR (MDRD) Af Amer >60 (>60 ml/min/1.73 sqM) 10/23/16 18:24 Est GFR (MDRD) Non-Af 60 (>60 ml/min/1.73 sqM) 10/23/16 18:24 Glucose 95 mg/dL (74-99) 10/21/16 06:24 Plasma Lactic Acid Adam 0.8 mmol/L (0.7-2.0) 10/20/16 14:25 Calcium 8.4 mg/dL (8.4-10.2) 10/21/16 06:24 Magnesium 2.0 mg/dL (1.6-2.3) 10/21/16 06:24 Urine Color Yellow 10/20/16 21:30 Urine Appearance Cloudy (Clear) H 10/20/16 21:30 Urine pH 6.0 (5.0-8.0) 10/20/16 21:30 Ur Specific [place] 1.017 (1.001-1.035) 10/20/16 21:30 Urine Protein Negative (Negative) 10/20/16 21:30 Urine Glucose (UA) Negative (Negative) 10/20/16 21:30 Urine Ketones Negative (Negative) 10/20/16 21:30 Urine Blood Negative (Negative) 10/20/16 21:30 Urine Nitrite Negative (Negative) 10/20/16 21:30 Urine Bilirubin Negative (Negative) 10/20/16 21:30 Urine Urobilinogen <2.0 mg/dL (<2.0) 10/20/16 21:30 Ur Leukocyte Esterase Moderate (Negative) H 10/20/16 21:30 Urine RBC 5 /hpf (0-5) 10/20/16 21:30 Urine WBC 3 /hpf (0-5) 10/20/16 21:30 Ur Squamous Epith Cells 10 /hpf (0-4) H 10/20/16 21:30 Urine Bacteria Few /hpf (None) H 10/20/16 21:30 Urine Mucus Occasional /hpf (None) H 10/20/16 21:30 Vancomycin Trough 11.1 ug/mL 10/23/16 18:24 Urine Opiates Screen Not Detected (NotDetected) 10/20/16 21:30 Ur Oxycodone Screen Not Detected (NotDetected) 10/20/16 21:30 Urine Methadone Screen Not Detected (NotDetected) 10/20/16 21:30 Ur Propoxyphene Screen Not Detected (NotDetected) 10/20/16 21:30 Ur Barbiturates Screen Not Detected (NotDetected) 10/20/16 21:30 U Tricyclic Antidepress Not Detected (NotDetected) 10/20/16 21:30 Ur Phencyclidine Scrn Not Detected (NotDetected) 10/20/16 21:30 Ur Amphetamines Screen Not Detected (NotDetected) 10/20/16 21:30 U Methamphetamines Scrn Not Detected (NotDetected) 10/20/16 21:30 U Benzodiazepines Scrn Not Detected (NotDetected) 10/20/16 21:30 Urine Cocaine Screen Not Detected (NotDetected) 10/20/16 21:30 U Marijuana (THC) Screen Not Detected (NotDetected) 10/20/16 21:30 Microbiology 10/20/16 14:25 Blood Blood Culture - Preliminary No Growth after 120 hours 10/21/16 19:35 Thigh - Left Gram Stain - Final 10/21/16 19:35 Thigh - Left Wound Culture - Final Staphylococcus aureus Assessment and Plan (1) Abscess Narrative/Plan: 36-year-old female presents to the hospital with a five-day history of increasing pain and swelling to the left thigh. She developed a pimple and with manipulation it did not improved. Nausea distinct abscess area in the left thigh that had an I&D done in the emergency center. She's been seen by surgery who is one monitoring and may consider further decision drainage depending on his progress. For antibiotic therapy will add vancomycin to Ancef with concerns that this could be an MRSA infection given the presentation. Local wound care will be changed to Aquacel silver rope packed into the area. Local wound care will hopefully help the discomfort. Toradol will be added for some pain control. Multivitamin is added to help her overall wound healing. She believes she is up-to-date with her tetanus vaccine already. Is feeling slightly better today. The significant erythema is improved. Drainage is improved. Toradol is helping her pain. Follow-up imaging of the thigh has been requested to ensure she does not need further surgical drainage. Especially because she is still having such ongoing significant tenderness. Culture is now final. Staph aureus has been isolated. Not MRSA. Vancomycin was discontinued. Continue high dose Ancef Does show further improvement today. Swelling and induration of deftly improved. She still very anxious about going home and that the dressing changes so painful. We'll address the primary care team some oral pain medication and can be utilized at the time of her dressing change. She was soon timeout her Toradol dosing any be switched to ibuprofen or similar. She was discharged home today. Keflex 500 mg every 6 hours should be utilized for 7 days at discharge. Status: Acute (2) Cellulitis and abscess of left leg Status: Acute
== END 2016-10-25 14:55 | disposition home health service (06) | DRG 872 ==
LOC: EC 13:43 → 6PED 16:50
PROVIDERS: ADMIT Hospitalist; ATTEND Hospitalist
PROC: 0H9LXZX Drainage of Left Lower Leg Skin, External Approach, Diagnostic (ICD-10-PCS; principal; 2016-10-20)
DX: A41.9 Sepsis, unspecified organism (principal); L02.416 Cutaneous abscess of left lower limb; L03.116 Cellulitis of left lower limb; G40.909 Epilepsy, unspecified, not intractable, without status epilepticus; E66.9 Obesity, unspecified; B95.61 Methicillin susceptible Staphylococcus aureus infection as the cause of diseases classified elsewhere; Z87.891 Personal history of nicotine dependence; Z79.899 Other long term (current) drug therapy; Z82.0 Family history of epilepsy and other diseases of the nervous system; Z83.3 Family history of diabetes mellitus; Z88.8 Allergy status to other drugs, medicaments and biological substances; Z68.37 Body mass index [BMI] 37.0-37.9, adult
CPT/HCPCS: 10060; 36415; 71010; 80048; 80202; 80306; 81001; 82565; 83605; 83735; 85025; 87040; 87070; 87077; 87186; 87205; 96361; 96365; 96375; 99284

== ENCOUNTER → 2016-10-27 | Outpatient (CLI) | payer OTHER ==
[2016-10-27 09:31] LABS: Basophils % (A) 0 %; Eosinophils # (A) 0.2 k/uL (0-0.7); Eosinophils % (A) 3 %; HDW 2.57; HGB 11.8 gm/dL (11.4-16.0); Luc # (Auto) 0.08; Luc % (Auto) 2; Lymphocytes # (A) 1.6 k/uL (1.0-4.8); Lymphocytes % (A) 31 %; MCH 29.6 pg (25.0-35.0); MCHC 33.7 g/dL (31.0-37.0); Mean Platelet Volume 6.4; Monocytes # (A) 0.2 k/uL (0-1.0); Monocytes % (A) 4 %; Neutrophils % (A) 60 %; RBC 3.98 m/uL (3.80-5.40); RDW 12.2 % (11.5-15.5); WBC (Perox) 5.29
[2016-10-27 09:47] LABS: Anion Gap 9 mmol/L; Blood Urea Nitrogen 11 mg/dL (7-17); Calcium 8.9 mg/dL (8.4-10.2); Carbon Dioxide 22 mmol/L (22-30); Chloride 111 mmol/L (98-107); Glucose 96 mg/dL (74-99); Non-African American GFR(MDRD) >60 (>60 ml/min/1.73 sqM); Potassium 4.1 mmol/L (3.5-5.1); Sodium 142 mmol/L (137-145)
== END | disposition home or self-care (01) ==
LOC: LABWHC1 08:55
PROVIDERS: ATTEND Nurse Practitioner
DX: L03.90 Cellulitis, unspecified (principal)
CPT/HCPCS: 36415; 80048; 85025

== ENCOUNTER → 2017-03-07 | Outpatient (CLI) | payer OTHER ==
--- NOTE | 2017-03-07 22:40 | CT ---
EXAMINATION TYPE: CT shoulder RT wo con DATE OF EXAM: 03/07/2017 COMPARISON: Right humerus x-ray June 09, 2016 HISTORY: Right shoulder pain per order. Pain for one year possibly from seizure injury per patient. CT DLP: 399 mGycm Automated exposure control for dose reduction was used. FINDINGS: No acute fracture or dislocation is seen. Glenohumeral and acromioclavicular joints are maintained. R otator cuff muscle bulk is grossly preserved. Long head of biceps remains within bicipital groove. Vi sualized scapula is intact. Visualized right lung is clear. Visualized ribs are intact. Axillary region is felt within normal duke its. IMPRESSION: UNREMARKABLE STUDY, NO SIGNIFICANT FINDING IS SEEN TO ACCOUNT FOR PATIENT'S SYMPTOMS.
== END | disposition home or self-care (01) ==
LOC: RADCTMAIN 15:21
PROVIDERS: ATTEND Psychiatry & Neurology Neurology
DX: M25.511 Pain in right shoulder (principal)

== ENCOUNTER → 2018-10-09 | Outpatient (CLI) | payer OTHER ==
--- NOTE | 2018-10-09 18:04 | XR ---
EXAMINATION TYPE: XR lumbar spine 2 or 3V DATE OF EXAM: 10/09/2018 COMPARISON: NONE HISTORY: 38-year-old female chronic pain, no injury TECHNIQUE: 3 views FINDINGS: Minimal anterior wedging at T11 is age-indeterminate. Anterior spondylotic change T10-T11 a nd T11-T12 suggests chronic changes. Transitional lumbosacral segment denoted as a sacralized L5. Fac et arthropathy lower lumbar spine. Vertebral body heights and disc interspaces are relatively [place]. IMPRESSION: Transitional lumbosacral segment. Mild facet arthropathy lower lumbar spine. Minimal anterior wedging of T11 could represent physiologic wedging or age indeterminate compression injury.
--- NOTE | 2018-10-09 18:05 | XR ---
EXAMINATION TYPE: XR knee limited bilateral DATE OF EXAM: 10/09/2018 COMPARISON: NONE HISTORY: 38-year-old female with chronic pain TECHNIQUE: 2 views each side FINDINGS: Right knee demonstrates a bone island within the lateral femoral condyle. Extensor mechanism are inta ct. No knee joint effusions. No acute fracture, subluxation, dislocation seen. IMPRESSION: No acute osseous abnormality seen on 2 views of each knee.
--- NOTE | 2018-10-09 18:23 | XR ---
EXAMINATION TYPE: XR foot limited bilateral DATE OF EXAM: 10/09/2018 COMPARISON: NONE HISTORY: 38-year-old female with chronic pain TECHNIQUE: 2 views each side FINDINGS: Very mild marginal spurring at the first MTP joints on both sides and slight hallux valgus. No acute fracture, subluxation, or dislocation on these 2 views. Small posterior calcaneal spurs. IMPRESSION: Very mild degenerative spurring at the first MTP joints. Small posterior calcaneal spurs. No acute os seous abnormality seen.
== END | disposition home or self-care (01) ==
LOC: RADXRMAIN 11:43
PROVIDERS: ATTEND Internal Medicine
DX: M46.96 Unspecified inflammatory spondylopathy, lumbar region (principal); M25.562 Pain in left knee; M25.561 Pain in right knee; M77.32 Calcaneal spur, left foot; M77.31 Calcaneal spur, right foot; M77.8 Other enthesopathies, not elsewhere classified
CPT/HCPCS: 72100

== ENCOUNTER → 2018-10-16 | Outpatient (CLI) | payer OTHER ==
[2018-10-16 13:10] LABS: MCH 28.5 pg (25.0-35.0); MCHC 33.3 g/dL (31.0-37.0); MCV 85.6 fL (80.0-100.0); Mean Platelet Volume 6.6; Platelet Count 267 k/uL (150-450); RDW 12.6 % (11.5-15.5); WBC 5.7 k/uL (3.8-10.6)
[2018-10-16 16:22] LABS: Erythrocyte Sedimentation Rate 8 mm/hr (0-20)
[2018-10-16 20:11] LABS: ALT 56 U/L (8-44); AST 38 U/L (13-35); African American GFR (CKD) 108.4 (60.0-200.0); Albumin/Globulin Ratio 2.05 (1.60-3.17); Alkaline Phosphatase 93 U/L (41-126); BUN/Creat Ratio 23.75 Ratio (12.00-20.00); Calcium 8.9 mg/dL (8.7-10.3); Chloride 108 mmol/L (96-109); Chol/HDL Ratio 2.29; Cholesterol 156 mg/dL (0-200); Creatine Kinase 80 U/L (26-186); Globulin 1.9 g/dL (1.6-3.3); Glucose 87 mg/dL (70-110); Potassium 4.1 mmol/L (3.5-5.5); Rheumatoid Factor <4 IU/mL (0-15); Sodium 140 mmol/L (135-145); Total Protein 5.8 g/dL (6.2-8.2); Triglycerides <50.0 mg/dL (0.0-149.0); VLDL Calculation 9.98 mg/dL (5.00-40.00)
[2018-10-16 20:14] LABS: Hemoglobin A1C 5.7 % (4.0-6.0)
== END | disposition home or self-care (01) ==
LOC: LABWHC1 11:27
PROVIDERS: ATTEND Internal Medicine
DX: M26.629 Arthralgia of temporomandibular joint, unspecified side (principal); G40.909 Epilepsy, unspecified, not intractable, without status epilepticus; R60.9 Edema, unspecified; R94.5 Abnormal results of liver function studies
CPT/HCPCS: 36415; 80053; 80061; 80074; 82550; 83036; 84439; 84443; 85027; 85652; 86038; 86431

== ENCOUNTER 2019-03-15 15:22 | Observation (INO) | payer OTHER ==
[2019-03-15] MEDS ORDERED: ASPIRIN 81 MG PO STA (16:01)
--- NOTE | 2019-03-15 16:31 | ED ---
General Adult HPI - General Chief complaint: ENT Stated complaint: Ear/tooth/stomach pain Time Seen by Provider: 03/15/19 15:39 Source: patient Mode of arrival: ambulatory Limitations: no limitations - History of Present Illness Initial comments: Patient is a 38-year-old female presenting to the emergency department with a chief complaint of right-sided jaw pain and heartburn. Patient reports 2 days ago she developed right ear pain that is now radiating to the neck. Patient also reports today she is developing heartburn and epigastric region that is radiating along the sternum. Patient denies any chest pain. She does report dyspnea on exertion over the last month. Denies any chest pain on exertion. Does have a history of smoking but quit 6 years ago. No history of hypertension and hyperlipidemia. Patient is borderline diabetic. States her mother in her 50s due to a heart attack. Denies any leg tenderness, dizziness, nausea vomiting. Denies any back pain or focal neural deficits. - Related Data Home Medications Medication Instructions Recorded Confirmed Lacosamide [Vimpat] 200 mg PO BID 10/20/16 03/15/19 Topiramate [Topamax] 200 mg PO BID 10/20/16 03/15/19 lamoTRIgine [LaMICtal] 100 mg PO BID 10/20/16 03/15/19 lamoTRIgine [LaMICtal] 150 mg PO BID 10/20/16 03/15/19 Allergies Allergy/AdvReac Type Severity Reaction Status Date / Time levetiracetam [From Keppra] Allergy Intermediate Rash/Hives Verified 03/15/19 17:46 Review of Systems ROS Statement: Those systems with pertinent positive or pertinent negative responses have been documented in the HPI. ROS Other: All systems not noted in ROS Statement are negative. Past Medical History Past Medical History: Seizure Disorder Additional Past Medical History / Comment(s): epilepsy History of Any Multi-Drug Resistant Organisms: None Reported Past Surgical History: Tubal Ligation Additional Past Surgical History / Comment(s): VNS implant, Past Anesthesia/Blood Transfusion Reactions: No Reported Reaction Past Psychological History: No Psychological Hx Reported Smoking Status: Former smoker Past Alcohol Use History: None Reported Past Drug Use History: None Reported - Past Family History Mother Family Medical History: Diabetes Mellitus Father Family Medical History: Seizure Disorder General Exam Limitations: no limitations General appearance: alert, in no apparent distress Head exam: Present: atraumatic, normocephalic, normal inspection Eye exam: Present: normal appearance, PERRL, EOMI Pupils: Present: normal accommodation ENT exam: Present: normal exam, normal oropharynx, mucous membranes moist, TM's normal bilaterally (Fluid behind right hepatic member and.), normal external ear exam Neck exam: Present: normal inspection, full ROM. Absent: tenderness (No tenderness along the right side of the neck.) Respiratory exam: Present: normal lung sounds bilaterally. Absent: respiratory distress, wheezes Cardiovascular Exam: Present: regular rate, normal rhythm, normal heart sounds GI/Abdominal exam: Present: soft, tenderness (Mild epigastric tenderness). Absent: distended Extremities exam: Present: normal inspection, full ROM, normal capillary refill, other (+2 ulnar and radial pulses bilaterally.) Back exam: Present: normal inspection, full ROM Neurological exam: Present: alert, oriented X3 Psychiatric exam: Present: normal affect, normal mood Skin exam: Present: warm, dry, intact, normal color Course Vital Signs 03/15/19 03/15/19 15:34 17:11 Temperature 97.4 F L 98 F Pulse Rate 58 L 57 L Respiratory 18 16 Rate Blood Pressure 137/82 122/80 O2 Sat by Pulse 97 97 Oximetry Medical Decision Making - Medical Decision Making Patient is a 38-year-old female presenting to emergency Department with chief complaint of heartburn and jaw pain. On exam her right ear looks well. No tenderness with palpation on the right side of the neck. Some epigastric abdominal pain. Patient does have dyspnea on exertion over the last month. Patient was a former smoker. Borderline diabetic. No hypertension or hypercholesterolemia. Initial troponins negative. CBC and CMP are unremarkable. Patient does have inverted T waves in V1 through V4. Incomplete right bundle-branch block as well in the same leads. Ischemic changes noted on EKG. Patient will be admitted for observation. Case discussed with Dr. segovia Admitting physician is Dr. Elizabeth. Cardiology consulted. - Lab Data Result diagrams: 03/15/19 16:22 03/15/19 16:22 Lab Results 03/15/19 03/15/19 03/15/19 Range/Units 16:22 16:22 16:22 WBC 5.1 (3.8-10.6) k/uL RBC 4.78 (3.80-5.40) m/uL Hgb 13.3 (11.4-16.0) gm/dL Hct 41.3 (34.0-46.0) % MCV 86.3 (80.0-100.0) fL MCH 27.8 (25.0-35.0) pg MCHC 32.2 (31.0-37.0) g/dL RDW 12.2 (11.5-15.5) % Plt Count 285 (150-450) k/uL Neutrophils % 59 % Lymphocytes % 33 % Monocytes % 5 % Eosinophils % 2 % Basophils % 0 % Neutrophils # 3.0 (1.3-7.7) k/uL Lymphocytes # 1.7 (1.0-4.8) k/uL Monocytes # 0.2 (0-1.0) k/uL Eosinophils # 0.1 (0-0.7) k/uL Basophils # 0.0 (0-0.2) k/uL PT 10.3 (9.0-12.0) sec INR 1.0 (<1.2) APTT 24.5 (22.0-30.0) sec Sodium 138 (137-145) mmol/L Potassium 4.1 (3.5-5.1) mmol/L Chloride 109 H (98-107) mmol/L Carbon Dioxide 24 (22-30) mmol/L Anion Gap 5 mmol/L BUN 11 (7-17) mg/dL Creatinine 0.85 (0.52-1.04) mg/dL Est GFR (CKD-EPI)AfAm >90 (>60 ml/min/1.73 sqM) Est GFR (CKD-EPI)NonAf 88 (>60 ml/min/1.73 sqM) Glucose 93 (74-99) mg/dL Calcium 9.3 (8.4-10.2) mg/dL Magnesium 2.2 (1.6-2.3) mg/dL Total Bilirubin 1.0 (0.2-1.3) mg/dL AST 28 (14-36) U/L ALT 27 (4-34) U/L Alkaline Phosphatase 70 (38-126) U/L Troponin I (0.000-0.034) ng/mL Total Protein 7.2 (6.3-8.2) g/dL Albumin 4.1 (3.5-5.0) g/dL 03/15/19 Range/Units 16:22 WBC (3.8-10.6) k/uL RBC (3.80-5.40) m/uL Hgb (11.4-16.0) gm/dL Hct (34.0-46.0) % MCV (80.0-100.0) fL MCH (25.0-35.0) pg MCHC (31.0-37.0) g/dL RDW (11.5-15.5) % Plt Count (150-450) k/uL Neutrophils % % Lymphocytes % % Monocytes % % Eosinophils % % Basophils % % Neutrophils # (1.3-7.7) k/uL Lymphocytes # (1.0-4.8) k/uL Monocytes # (0-1.0) k/uL Eosinophils # (0-0.7) k/uL Basophils # (0-0.2) k/uL PT (9.0-12.0) sec INR (<1.2) APTT (22.0-30.0) sec Sodium (137-145) mmol/L Potassium (3.5-5.1) mmol/L Chloride (98-107) mmol/L Carbon Dioxide (22-30) mmol/L Anion Gap mmol/L BUN (7-17) mg/dL Creatinine (0.52-1.04) mg/dL Est GFR (CKD-EPI)AfAm (>60 ml/min/1.73 sqM) Est GFR (CKD-EPI)NonAf (>60 ml/min/1.73 sqM) Glucose (74-99) mg/dL Calcium (8.4-10.2) mg/dL Magnesium (1.6-2.3) mg/dL Total Bilirubin (0.2-1.3) mg/dL AST (14-36) U/L ALT (4-34) U/L Alkaline Phosphatase (38-126) U/L Troponin I <0.012 (0.000-0.034) ng/mL Total Protein (6.3-8.2) g/dL Albumin (3.5-5.0) g/dL Disposition Clinical Impression: Heartburn symptom, Shortness of breath, T wave inversion in EKG Disposition: ADMITTED IP TO THIS [facility] Condition: Stable Instructions (If sedation given, give patient instructions): Chest Pain (DC) Additional Instructions: Patient will be admitted Is patient prescribed a controlled substance at d/c from ED?: No Referrals: Lin Henderson MD [Primary Care Provider] - 1-2 days Time of Disposition: 18:05
--- NOTE | 2019-03-15 16:51 | XR ---
EXAMINATION TYPE: XR chest 2V DATE OF EXAM: 03/15/2019 COMPARISON: 10/20/2016 HISTORY: 38-year-old female chest pain TECHNIQUE: PA and lateral views FINDINGS: Left-sided generator device with lead extending to the left base of the neck. The cardiomediastinal s ilhouette, aorta, and pulmonary vasculature are within normal limits. Lungs and pleural spaces are cl ear. IMPRESSION: No acute cardiopulmonary process.
[2019-03-15 16:54] LABS: Basophils % (A) 0 %; Eosinophils # (A) 0.1 k/uL (0-0.7); Eosinophils % (A) 2 %; HCT 41.3 % (34.0-46.0); HGB 13.3 gm/dL (11.4-16.0); Lymphocytes # (A) 1.7 k/uL (1.0-4.8); Lymphocytes % (A) 33 %; MCH 27.8 pg (25.0-35.0); MCHC 32.2 g/dL (31.0-37.0); MCV 86.3 fL (80.0-100.0); Mean Platelet Volume 7.3; Monocytes # (A) 0.2 k/uL (0-1.0); Monocytes % (A) 5 %; Neutrophils % (A) 59 %; Platelet Count 285 k/uL (150-450); RBC 4.78 m/uL (3.80-5.40); RDW 12.2 % (11.5-15.5); WBC 5.1 k/uL (3.8-10.6)
[2019-03-15 17:03] LABS: ALT 27 U/L (4-34); AST 28 U/L (14-36); African American GFR (CKD) >90 (>60 ml/min/1.73 sqM); Albumin 4.1 g/dL (3.5-5.0); Alkaline Phosphatase 70 U/L (38-126); Anion Gap 5 mmol/L; Blood Urea Nitrogen 11 mg/dL (7-17); Calcium 9.3 mg/dL (8.4-10.2); Carbon Dioxide 24 mmol/L (22-30); Chloride 109 mmol/L (98-107); Glucose 93 mg/dL (74-99); Magnesium 2.2 mg/dL (1.6-2.3); Non-African American GFR(CKD) 88 (>60 ml/min/1.73 sqM); Potassium 4.1 mmol/L (3.5-5.1); Sodium 138 mmol/L (137-145); Total Protein 7.2 g/dL (6.3-8.2)
[2019-03-15 17:43] LABS: Partial Thromboplastin Time 24.5 sec (22.0-30.0); Prothrombin Time 10.3 sec (9.0-12.0)
[2019-03-15] MEDS ORDERED: NITROGLYCERIN SL TABS 0.4 MG TAB SUBLINGUAL PRN (17:57)
[2019-03-15 19:24] VITALS: RESP 18
[2019-03-16 04:49] LABS: Cholesterol 134 mg/dL (<200); HDL Cholesterol 58 mg/dL (40-60); LDL Cholesterol,Calculated 58 mg/dL (0-99); Triglycerides 92 mg/dL (<150)
[2019-03-16] MEDS ORDERED: LACOSAMIDE 50 MG TABLET PO SCH (10:15)
[2019-03-16] MEDS ORDERED: LACOSAMIDE 150 MG TABLET PO SCH (10:15)
[2019-03-16] MEDS ORDERED: lamoTRIgine 100 MG TAB PO SCH ×3 (10:15→10:30)
[2019-03-16] MEDS ORDERED: ACETAMINOPHEN TAB 500 MG TAB PO PRN (10:15)
[2019-03-16] MEDS ORDERED: TOPIRAMATE 100 MG TAB PO SCH (10:15)
[2019-03-16] MEDS ORDERED: PANTOPRAZOLE 40 MG/10 ML VIAL IVP SCH (10:30)
--- NOTE | 2019-03-16 10:40 | P.CRDCN ---
History of Present Illness Consult date: 03/16/19 History of present illness: This is a 38-year-old female with history of epilepsy who was seen in the emergency room yesterday for pain in the right ear and also right jaw. Patient also complained of some epigastric discomfort and episodes of shortness of breath. Her EKG showed mild T-wave inversion in the anterior leads. Patient is not a smoker. No history of hypertension, diabetes or hypercholesterolemia. However, patient has family history. Her mother last year at the age of about 55. Her mother apparently who was a diabetic. At the time of my examination patient is still complaining of pain in the right ear. Her EKGs and cardiac enzymes are negative. Her pains appear to be atypical. From Cardec standpoint patient could be discharged home and be evaluated by stress test and echocardiogram as an outpatient Review of Systems As per the chart Past Medical History Past Medical History: Seizure Disorder Additional Past Medical History / Comment(s): epilepsy History of Any Multi-Drug Resistant Organisms: None Reported Past Surgical History: Tubal Ligation Additional Past Surgical History / Comment(s): VNS implant, Past Anesthesia/Blood Transfusion Reactions: No Reported Reaction Past Psychological History: No Psychological Hx Reported Additional Psychological History / Comment(s): Single her children aged 14 and 10 live with her. Does not works outside of the home. No tobacco use since 2013. Denies significant alcohol or recreational drug use. No experience. No travel history. No pets in the home at this time Smoking Status: Former smoker Past Alcohol Use History: None Reported Past Drug Use History: None Reported - Past Family History Mother Family Medical History: Diabetes Mellitus Father Family Medical History: Seizure Disorder Medications and Allergies Home Medications Medication Instructions Recorded Confirmed Type Lacosamide [Vimpat] 200 mg PO BID 10/20/16 03/15/19 History Topiramate [Topamax] 200 mg PO BID 10/20/16 03/15/19 History lamoTRIgine [LaMICtal] 100 mg PO BID 10/20/16 03/15/19 History lamoTRIgine [LaMICtal] 150 mg PO BID 10/20/16 03/15/19 History Acetaminophen [Tylenol Extra 2,000 mg PO ONCE PRN 03/15/19 03/15/19 History Strength] Furosemide [Lasix] 40 mg PO DAILY PRN 03/15/19 03/15/19 History Famotidine [Pepcid] 20 mg PO BID #30 tablet 03/16/19 Rx Allergies Allergy/AdvReac Type Severity Reaction Status Date / Time levetiracetam [From [facility]] Allergy Intermediate Rash/Hives Verified 03/15/19 17:46 Physical Exam Vitals: Vital Signs Temp Pulse Pulse Resp BP BP Pulse Ox 03/16/19 08:15 18 03/16/19 07:41 97.9 F 54 L 18 103/67 96 03/16/19 05:00 98.4 F 51 L 18 119/73 97 03/16/19 04:00 48 L 18 03/15/19 23:34 48 L 18 03/15/19 23:27 97.7 F 48 L 18 108/68 98 03/15/19 20:00 54 L 18 03/15/19 18:45 98.1 F 49 L 18 147/74 98 03/15/19 18:26 98 F 55 L 16 111/90 98 03/15/19 17:11 98 F 57 L 16 122/80 97 03/15/19 15:34 97.4 F L 58 L 18 137/82 97 Intake and Output 03/15/19 03/16/19 03/16/19 22:59 06:59 14:59 Other: Voiding Method Toilet # Voids 2 Weight 113.398 kg 114.6 kg GENERAL EXAM: Patient is alert and oriented and doesn't appear to be in any acute distress HEENT: Normocephalic. Normal reaction of pupils, equal size, normal range of extraocular motion. No erythema or exudates in the throat. NECK: No masses, no nuchal rigidity. CHEST: No chest wall deformity. LUNGS: Equal air entry with no crackles or wheeze. HEART: S1 and S2 normal with no audible mumurs or gallops. Regular rhythm, femorals equal on both sides.. ABDOMEN: No hepatosplenomegaly, normal bowel sounds, no guarding or rigidity. SKIN: No rashes CENTRAL NERVOUS SYSTEM: No focal deficits. EXTREMITIES: No cyanosis, clubbing or edema. Results 03/15/19 16:22 03/15/19 16:22 Cardiac Enzymes 03/15/19 03/15/19 03/15/19 Range/Units 16:22 16:22 22:38 AST 28 (14-36) U/L Troponin I <0.012 <0.012 (0.000-0.034) ng/mL 03/16/19 Range/Units 03:52 AST (14-36) U/L Troponin I <0.012 (0.000-0.034) ng/mL Coagulation 03/15/19 Range/Units 16:22 PT 10.3 (9.0-12.0) sec APTT 24.5 (22.0-30.0) sec Lipids 03/16/19 Range/Units 03:52 Triglycerides 92 (<150) mg/dL Cholesterol 134 (<200) mg/dL HDL Cholesterol 58 (40-60) mg/dL CBC 03/15/19 Range/Units 16:22 WBC 5.1 (3.8-10.6) k/uL RBC 4.78 (3.80-5.40) m/uL Hgb 13.3 (11.4-16.0) gm/dL Hct 41.3 (34.0-46.0) % Plt Count 285 (150-450) k/uL Comprehensive Metabolic Panel 03/15/19 Range/Units 16:22 Sodium 138 (137-145) mmol/L Potassium 4.1 (3.5-5.1) mmol/L Chloride 109 H (98-107) mmol/L Carbon Dioxide 24 (22-30) mmol/L BUN 11 (7-17) mg/dL Creatinine 0.85 (0.52-1.04) mg/dL Glucose 93 (74-99) mg/dL Calcium 9.3 (8.4-10.2) mg/dL AST 28 (14-36) U/L ALT 27 (4-34) U/L Alkaline Phosphatase 70 (38-126) U/L Total Protein 7.2 (6.3-8.2) g/dL Albumin 4.1 (3.5-5.0) g/dL Current Medications Generic Name Dose Route Start Last Admin Trade Name Freq PRN Reason Stop Dose Admin Acetaminophen 2,000 mg 03/16/19 10:15 Tylenol Tab PO ONCE PRN Pain Lacosamide 150 mg 03/16/19 10:15 Vimpat PO BID NEMESIO Lacosamide 50 mg 03/16/19 10:15 Vimpat PO BID NEMESIO Lamotrigine 250 mg 03/16/19 10:30 Lamictal PO BID NEMESIO Nitroglycerin 0.4 mg 03/15/19 17:57 Nitrostat SUBLINGUAL Q5M PRN Chest Pain Pantoprazole Sodium 40 mg 03/16/19 10:30 Protonix IVP DAILY NEMESIO Topiramate 200 mg 03/16/19 10:15 Topamax PO BID NEMESIO Intake and Output 03/15/19 03/16/19 03/16/19 22:59 06:59 14:59 Other: Voiding Method Toilet # Voids 2 Weight 113.398 kg 114.6 kg 03/15/19 16:22 03/15/19 16:22 EKG Interpretations (text) Sinus rhythm with the atypical minor T-wave changes in anterior leads Assessment and Plan (1) Heartburn symptom Current Visit: Yes Status: Acute Code(s): R12 - HEARTBURN SNOMED Code(s): 91307108 (2) T wave inversion in EKG Current Visit: Yes Status: Acute Code(s): R94.31 - ABNORMAL ELECTROCARDIOGRAM [ECG] [EKG] SNOMED Code(s): 97173224 Plan: Her symptoms are atypical. Cardiac enzymes are negative. Patient could be discharged home. To have a stress test and echocardiogram as an outpatient
[2019-03-16] MEDS ORDERED: traMADol 50 MG TAB PO PRN (10:42)
--- NOTE | 2019-03-16 10:51 | P.HPIM ---
History of Present Illness Patient is a pleasant 38-year-old female came in with compensative right Any earache The Heartburn. Patient Had an EKG Which Showed Some Mild T-Wave Inversions in the Anterior Leads Because of Which Patient Was Admitted to Rule Out a Concurrent Syndromes Patient Doesn't Have Any Chest Pain Denied Any Diaphoresis Nausea and Troponins Were Negative Neurology Evaluated the Patient They Cleared Her for Discharge. Patient Has a Dental Caries Leading to Possible Middle Ear Infection. Patient Will Be Discharged on Augmentin for a Week Followed and Patient Will Follow with Dental Surgery As an Outpatient. Patient Does Have Seizure Disorder for Which Patient on Multiple Antiseizure Medications. Patient Will Be Discharged on Now Prilosec and Augmentin to Follow up with the Dentist As an Outpatient Review of Systems REVIEW OF SYSTEMS: CONSTITUTIONAL: No fever, no malaise, no fatigue. HEENT: As mentioned in HPI. CARDIOVASCULAR: No chest pain, orthopnea, PND, no palpitations, no syncope. PULMONARY: No shortness of breath, no cough, no hemoptysis. GASTROINTESTINAL: No diarrhea, no nausea, no vomiting, no abdominal pain. NEUROLOGICAL: No headaches, no weakness, no numbness. HEMATOLOGICAL: Denies any bleeding or petechiae. GENITOURINARY: Denies any burning micturition, frequency, or urgency. MUSCULOSKELETAL/RHEUMATOLOGICAL: Denies any joint pain, swelling, or any muscle pain. ENDOCRINE: Denies any polyuria or polydipsia. The rest of the 14-point review of systems is negative. Past Medical History Past Medical History: Seizure Disorder Additional Past Medical History / Comment(s): epilepsy History of Any Multi-Drug Resistant Organisms: None Reported Past Surgical History: Tubal Ligation Additional Past Surgical History / Comment(s): VNS implant, Past Anesthesia/Blood Transfusion Reactions: No Reported Reaction Past Psychological History: No Psychological Hx Reported Additional Psychological History / Comment(s): Single her children aged 14 and 10 live with her. Does not works outside of the home. No tobacco use since 2013. Denies significant alcohol or recreational drug use. No experience. No travel history. No pets in the home at this time Smoking Status: Former smoker Past Alcohol Use History: None Reported Past Drug Use History: None Reported - Past Family History Mother Family Medical History: Diabetes Mellitus Father Family Medical History: Seizure Disorder Medications and Allergies Home Medications Medication Instructions Recorded Confirmed Type Lacosamide [Vimpat] 200 mg PO BID 10/20/16 03/15/19 History Topiramate [Topamax] 200 mg PO BID 10/20/16 03/15/19 History lamoTRIgine [LaMICtal] 100 mg PO BID 10/20/16 03/15/19 History lamoTRIgine [LaMICtal] 150 mg PO BID 10/20/16 03/15/19 History Acetaminophen [Tylenol Extra 2,000 mg PO ONCE PRN 03/15/19 03/15/19 History Strength] Furosemide [Lasix] 40 mg PO DAILY PRN 03/15/19 03/15/19 History Amoxicillin/Potassium Clav 1 tab PO Q12HR #14 tab 03/16/19 Rx [Augmentin 875-125 Tablet] Famotidine [Pepcid] 20 mg PO BID #30 tablet 03/16/19 Rx Allergies Allergy/AdvReac Type Severity Reaction Status Date / Time levetiracetam [From [facility]] Allergy Intermediate Rash/Hives Verified 03/15/19 17:46 Physical Exam Vitals: Vital Signs Temp Pulse Pulse Resp BP BP Pulse Ox 03/16/19 08:15 18 03/16/19 07:41 97.9 F 54 L 18 103/67 96 03/16/19 05:00 98.4 F 51 L 18 119/73 97 03/16/19 04:00 48 L 18 03/15/19 23:34 48 L 18 03/15/19 23:27 97.7 F 48 L 18 108/68 98 03/15/19 20:00 54 L 18 03/15/19 18:45 98.1 F 49 L 18 147/74 98 03/15/19 18:26 98 F 55 L 16 111/90 98 03/15/19 17:11 98 F 57 L 16 122/80 97 03/15/19 15:34 97.4 F L 58 L 18 137/82 97 Intake and Output 03/15/19 03/16/19 03/16/19 22:59 06:59 14:59 Other: Voiding Method Toilet # Voids 2 Weight 113.398 kg 114.6 kg PHYSICAL EXAMINATION: GENERAL: The patient is alert and oriented x3, not in any acute distress. Well developed, well nourished. HEENT: Pupils are round and equally reacting to light. EOMI. No scleral icterus. No conjunctival pallor. Normocephalic, atraumatic. No pharyngeal erythema. No thyromegaly. Patient has right lower first molar that appears to be infected and there may be an abscess. Restart some tenderness in the right cheek and neck area CARDIOVASCULAR: S1 and S2 present. No murmurs, rubs, or gallops. PULMONARY: Chest is clear to auscultation, no wheezing or crackles. ABDOMEN: Soft, nontender, nondistended, normoactive bowel sounds. No palpable organomegaly. MUSCULOSKELETAL: No joint swelling or deformity. EXTREMITIES: No cyanosis, clubbing, or pedal edema. NEUROLOGICAL: Gross neurological examination did not reveal any focal deficits. SKIN: No rashes. Results CBC & Chem 7: 03/15/19 16:22 03/15/19 16:22 Labs: Abnormal Lab Results - Last 24 Hours (Table) 03/15/19 Range/Units 16:22 Chloride 109 H (98-107) mmol/L Thrombosis Risk Factor Assmnt - Choose All That Apply Any of the Below Risk Factors Present?: Yes Each Factor Represents 1 point: Acute MD, Obesity (BMI >25) Other Risk Factors: No Other congenital or acquired thrombophilia - If yes, enter type in comment: No Thrombosis Risk Factor Assessment Total Risk Factor Score: 2 Thrombosis Risk Factor Assessment Level: Low Risk Assessment and Plan Plan: -Dental caries: Patient was discharged on Augmentin and patient may have really infection from this clinically it doesn't appear like patient has severe neck Facial infection. But patient was asked to come back if her symptoms doesn't get better and patient will be. Referred to dental surgery to see in the clinic tomorrow -Gases reflux disease for which patient will be discharged on 14 days of Prilosec -Ruled out acute coronary syndromes -Seizure disorder
--- NOTE | 2019-03-16 10:51 | P.DS ---
Providers Date of admission: 03/15/19 17:05 Attending physician: Angel Elizabeth Consults: 03/15/19 17:57 Consult Physician Urgent Consulting Provider: Florencia Blair Consult Reason/Comments: [facility] rule out, shortness of breath Do you want consulting provider notified?: Yes Primary care physician: Santiago Siegel [facility] Course: Refer to [facility] for further details. Patient Condition at Discharge: Stable Plan - Discharge Summary Discharge Rx Participant: No New Discharge Prescriptions: New Amoxicillin/Potassium Clav [Augmentin 875-125 Tablet] 1 tab PO Q12HR #14 tab Omeprazole [PriLOSEC] 40 mg PO AC-BRKFST #14 capsule. No Action Lacosamide [Vimpat] 200 mg PO BID Topiramate [Topamax] 200 mg PO BID lamoTRIgine [LaMICtal] 100 mg PO BID lamoTRIgine [LaMICtal] 150 mg PO BID Furosemide [Lasix] 40 mg PO DAILY PRN PRN Reason: SWELLING Acetaminophen [Tylenol Extra Strength] 2,000 mg PO ONCE PRN PRN Reason: Pain Discharge Medication List Lacosamide [Vimpat] 200 mg PO BID 10/20/16 [History] Topiramate [Topamax] 200 mg PO BID 10/20/16 [History] lamoTRIgine [LaMICtal] 100 mg PO BID 10/20/16 [History] lamoTRIgine [LaMICtal] 150 mg PO BID 10/20/16 [History] Acetaminophen [Tylenol Extra Strength] 2,000 mg PO ONCE PRN 03/15/19 [History] Furosemide [Lasix] 40 mg PO DAILY PRN 03/15/19 [History] Amoxicillin/Potassium Clav [Augmentin 875-125 Tablet] 1 tab PO Q12HR #14 tab 03/16/19 [Rx] Omeprazole [PriLOSEC] 40 mg PO AC-BRKFST #14 capsule. 03/16/19 [Rx] Follow up Appointment(s)/Referral(s): Lin Henderson MD [Primary Care Provider] - 3 Days Ramírez Hurtado DDS [STAFF PHYSICIAN] - 1 Week Patient Instructions/Handouts: Chest Pain (DC) Activity/Diet/Wound Care/Special Instructions: Patient will be admitted Discharge Disposition: HOME SELF-CARE
[2019-03-16 11:38] VITALS: BP 122/69; PULSE 60; TEMP 98.7
== END 2019-03-16 13:15 | disposition home or self-care (01) ==
LOC: EC 15:22 → 1SOBS 17:05
PROVIDERS: ADMIT Hospitalist; ATTEND Hospitalist
DX: K02.9 Dental caries, unspecified (principal); K21.9 Gastro-esophageal reflux disease without esophagitis; G40.909 Epilepsy, unspecified, not intractable, without status epilepticus; B99.8 Other infectious disease; R73.03 Prediabetes; Z87.891 Personal history of nicotine dependence; I45.10 Unspecified right bundle-branch block; Z82.0 Family history of epilepsy and other diseases of the nervous system; Z83.3 Family history of diabetes mellitus; Z79.899 Other long term (current) drug therapy; Z79.2 Long term (current) use of antibiotics; Z82.49 Family history of ischemic heart disease and other diseases of the circulatory system
CPT/HCPCS: 93005 ×2; 99284; 36415; 80061; 80053; 83735; 84484 ×2; 85025; 85610; 85730; 71046; G0378 ×2

== ENCOUNTER 2019-04-11 07:39 | Emergency (ER) | payer OTHER ==
[2019-04-11 07:44] VITALS: TEMP 97.3
[2019-04-11] MEDS ORDERED: KETOROLAC 60 MG/2 ML VIAL IM STA (08:02)
[2019-04-11] MEDS ORDERED: CYCLOBENZAPRINE 10MG STARTER 3 TAB BTL PO STA (08:02)
--- NOTE | 2019-04-11 08:17 | XR ---
EXAMINATION TYPE: XR shoulder complete RT DATE OF EXAM: 04/11/2019 CLINICAL HISTORY: Right shoulder pain with limited range of motion. No known injury. TECHNIQUE: Three views of the right shoulder are obtained. COMPARISON: Right humeral radiographs dated 06/09/2016 FINDINGS: There is no acute fracture/dislocation evident in the right shoulder. The acromioclavicul ar and glenohumeral joint spaces appear within normal limits. The visualized ribs are intact and unr emarkable. IMPRESSION: There is no acute fracture or dislocation in the right shoulder.
--- NOTE | 2019-04-11 08:26 | ED ---
Extremity Problem HPI - General Chief complaint: Extremity Problem,Nontraumatic Stated complaint: neck/back pain Time Seen by Provider: 04/11/19 07:45 Source: patient Mode of arrival: ambulatory Limitations: no limitations - History of Present Illness Initial comments: 38-year-old female presenting today for chief complaint of right shoulder pain she states there is an area of a knot that can be point localized in the right shoulder she states the area is pressed that shoots up towards the neck and the right elbow. Patient states that increases with range of motion of the right shoulder stressing injuries falls or traumas. Patient denies any recent seizures. Patient denies any chest pressure shortness of breath she denies jaw or ear pain. Patient states his symptoms do not feel in any way similar to her previous presentation in the beginning of march where she was admitted for chest pain r/o. Patient states she's been trying to apply heat which seems to help slightly. Patient states she did feel like she could go to work and presents emergency department for evaluation of the pain. Patient denies any redness swelling of the joint of the upper extremity. Denies epigastric pain or nausea. Denies DM/HTN, or smoking history. Patient denies any fever. Patient has no other complaints upon arrival patient appears well signs of acute distress. - Related Data Home Medications Medication Instructions Recorded Confirmed Lacosamide [Vimpat] 200 mg PO BID 10/20/16 03/15/19 Topiramate [Topamax] 200 mg PO BID 10/20/16 03/15/19 lamoTRIgine [LaMICtal] 100 mg PO BID 10/20/16 03/15/19 lamoTRIgine [LaMICtal] 150 mg PO BID 10/20/16 03/15/19 Acetaminophen [Tylenol Extra 2,000 mg PO ONCE PRN 03/15/19 03/15/19 Strength] Furosemide [Lasix] 40 mg PO DAILY PRN 03/15/19 03/15/19 Previous Rx's Medication Instructions Recorded Amoxicillin/Potassium Clav 1 tab PO Q12HR #14 tab 03/16/19 [Augmentin 875-125 Tablet] Omeprazole [PriLOSEC] 40 mg PO AC-BRKFST #14 capsule. 03/16/19 Allergies Allergy/AdvReac Type Severity Reaction Status Date / Time levetiracetam [From [facility]] Allergy Intermediate Rash/Hives Verified 04/11/19 07:44 Review of Systems ROS Statement: Those systems with pertinent positive or pertinent negative responses have been documented in the HPI. ROS Other: All systems not noted in ROS Statement are negative. Past Medical History Past Medical History: Seizure Disorder Additional Past Medical History / Comment(s): epilepsy History of Any Multi-Drug Resistant Organisms: None Reported Past Surgical History: Tubal Ligation Additional Past Surgical History / Comment(s): VNS implant, Past Anesthesia/Blood Transfusion Reactions: No Reported Reaction Past Psychological History: No Psychological Hx Reported Smoking Status: Former smoker Past Alcohol Use History: None Reported Past Drug Use History: None Reported - Past Family History Mother Family Medical History: Diabetes Mellitus Father Family Medical History: Seizure Disorder General Exam - General Exam Comments Initial Comments: General: The patient is awake and alert, in no distress, and does not appear acutely ill. Eye: Pupils are equal, round and reactive to light, extra-ocular movements are intact. No nystagmus. There is normal conjunctiva bilaterally. No signs of icterus. Ears, nose, mouth and throat: There are moist mucous membranes and no oral lesions. Neck: The neck is supple, there is no tenderness or JVD. Cardiovascular: There is a regular rate and rhythm. No murmur, rub or gallop is appreciated. Respiratory: Lungs are clear to auscultation, respirations are non-labored, breath sounds are equal. No wheezes, stridor, rales, or rhonchi. Musculoskeletal: Normal inspection of the anterior and posterior shoulders bilaterally. Patient does have tenderness over the mid trapezius with pulse pulse spasm/suspected adhesion. Tender to touch this area. No midline cervical pain to palpation for age motion cervical spine without difficulty. No limitations. No nuchal rigidity. Normal ROM shoulders elbows wrists bilaterally however patient complains of pain with range motion of the right shoulder. Posteriorly. Strength 5/5. Sensation intact. Patient is able to make the okay fingers crossed thumbs up there is no evidence of restrictive of the right upper extremity. No upper extremity swelling. Radial pulses equal bilaterally 2+. Neurological: A&O x 3. CN II-XII intact, There are no obvious motor or sensory deficits. Coordination appears grossly intact. Speech is normal. Skin: Skin is warm and dry and no rashes or lesions are noted. Psychiatric: Cooperative, appropriate mood & affect, normal judgment. Limitations: no limitations Course Vital Signs 04/11/19 04/11/19 07:41 08:57 Temperature 97.3 F L 97.3 F L Pulse Rate 72 78 Respiratory 20 18 Rate Blood Pressure 134/82 122/83 O2 Sat by Pulse 99 Oximetry Medical Decision Making - Medical Decision Making 38-year-old female presenting for right shoulder pain reproducible on physical examination point localized to touch. X-ray negative for osseous process however there is a palpable muscle spasm/adhesion of the right trapezius. Patient neurovascularly intact. There is no cervical spine tenderness. Patient has no nuchal rigidity no fever history. No history of headaches. At this time recommend applying heat to the area patient is given a muscle relaxer and starter pack for Tylenol No. 3 I discussed the use of NSAIDs. Return parameters were discussed at length I did obtain an EKG which revealed no acute findings in comparison with most recent previous. No findings suggestive of acute ischemia. Patient is to f/u with PCP in 1-2 days, Return parameters discussed and patient was discharged appearing well after discussing the case with Dr. Ferrell Disposition Clinical Impression: Right shoulder pain, Trapezius muscle spasm Disposition: HOME SELF-CARE Condition: Good Instructions (If sedation given, give patient instructions): Shoulder Pain (ED) Additional Instructions: Please use medication as discussed. Please follow-up with family doctor in the next 2 days. Please return to emergency room if the symptoms increase or worsen or for any other concerns. Is patient prescribed a controlled substance at d/c from ED?: No Referrals: Lin Henderson MD [Primary Care Provider] - 1-2 days Time of Disposition: 08:26
[2019-04-11] MEDS ORDERED: ACET/COD 300 MG/30 MG STARTER PACK 6 TAB BTL PO STA (08:47)
[2019-04-11 08:58] VITALS: BP 122/83; PULSE 78; RESP 18
== END 2019-04-11 09:00 | disposition home or self-care (01) ==
LOC: EC 07:39
DX: M62.838 Other muscle spasm (principal); G40.909 Epilepsy, unspecified, not intractable, without status epilepticus; Z87.891 Personal history of nicotine dependence; Z88.8 Allergy status to other drugs, medicaments and biological substances; Z79.899 Other long term (current) drug therapy
CPT/HCPCS: 93005; 73030; 99284; 96372; J1885

== ENCOUNTER 2020-08-07 12:11 | Emergency (ER) | payer OTHER ==
[2020-08-07 12:14] VITALS: BP 122/76; PULSE 85; RESP 18; TEMP 98.1
--- NOTE | 2020-08-07 12:36 | ED ---
General Adult HPI - General Chief complaint: Dental/Oral Stated complaint: Tooth Abscess Time Seen by Provider: 08/07/20 12:21 Source: patient Mode of arrival: ambulatory Limitations: no limitations - History of Present Illness Initial comments: Dictation was produced using [employer] dictation software. please excuse any grammatical, word or spelling errors. Chief Complaint: 39-year-old feel presents with dental pain History of Present Illness: 39-year-old female presents with several days of dental pain. She presents because she ran out of antibiotics and she is having persistent pain. Patient seen by the dentist she was given antibiotics or just ran out couple days ago. Patient has any fever. She states that the pain is in her lower right jaw. She has a scheduled appointment with the dentist in the near future who will perform tooth extraction. The ROS documented in this emergency department record has been reviewed and confirmed by me. Those systems with pertinent positive or negative responses have been documented in the HPI. All other systems are other negative and/or noncontributory. PHYSICAL EXAM: General Impression: Alert and oriented x3, not in acute distress HEENT: Normocephalic atraumatic, extra-ocular movements intact, pupils equal and reactive to light bilaterally, mucous membranes moist. Oral: No gingival abscess noted from oral exam Cardiovascular: Heart regular rate and rhythm Chest: Able to complete full sentences, no retractions, no tachypnea Abdomen: abdomen soft, non-tender, non-distended, no organomegaly Musculoskeletal: Pulses present and equal in all extremities, no peripheral edema Motor: no focal deficits noted Neurological: CN II-XII grossly intact, no focal motor or sensory deficits noted Skin: Intact with no visualized rashes Psych: Normal affect and mood ED course: 39 y Old female presents to the emergency department for dental pain. She has an appointment in a couple days with Dentist in [place]. Upon arrival are within acceptable limits. Physical examination does not show any drainable abscess. Patient likely has a periapical abscess. Patient's medica tions were refilled. She is given antibiotics and by mouth analgesia. - Related Data Home Medications Medication Instructions Recorded Confirmed Lacosamide [Vimpat] 200 mg PO BID 10/20/16 03/15/19 Topiramate [Topamax] 200 mg PO BID 10/20/16 03/15/19 lamoTRIgine [LaMICtal] 100 mg PO BID 10/20/16 03/15/19 lamoTRIgine [LaMICtal] 150 mg PO BID 10/20/16 03/15/19 Acetaminophen [Tylenol Extra 2,000 mg PO ONCE PRN 03/15/19 03/15/19 Strength] Furosemide [Lasix] 40 mg PO DAILY PRN 03/15/19 03/15/19 Previous Rx's Medication Instructions Recorded Amoxicillin/Potassium Clav 1 tab PO Q12HR #14 tab 03/16/19 [Augmentin 875-125 Tablet] Omeprazole [PriLOSEC] 40 mg PO AC-BRKFST #14 capsule. 03/16/19 Amoxic-Pot Clav 875-125Mg 1 tab PO BID 10 Days #20 tab 08/07/20 [Augmentin 875-125] HYDROcodone/APAP 5-325MG [[place] 1 tab PO Q6HR PRN 3 Days #12 tab 08/07/20 5-325] Allergies Allergy/AdvReac Type Severity Reaction Status Date / Time levetiracetam [From [facility]] Allergy Intermediate Rash/Hives Verified 08/07/20 12:15 Review of Systems ROS Statement: Those systems with pertinent positive or pertinent negative responses have been documented in the HPI. ROS Other: All systems not noted in ROS Statement are negative. Past Medical History Past Medical History: Seizure Disorder Additional Past Medical History / Comment(s): epilepsy History of Any Multi-Drug Resistant Organisms: None Reported Past Surgical History: Tubal Ligation Additional Past Surgical History / Comment(s): VNS implant, Past Anesthesia/Blood Transfusion Reactions: No Reported Reaction Past Psychological History: No Psychological Hx Reported Smoking Status: Former smoker Past Alcohol Use History: None Reported Past Drug Use History: None Reported - Past Family History Mother Family Medical History: Diabetes Mellitus Father Family Medical History: Seizure Disorder General Exam Limitations: no limitations Course Vital Signs 08/07/20 12:12 Temperature 98.1 F Pulse Rate 85 Respiratory 18 Rate Blood Pressure 122/76 O2 Sat by Pulse 99 Oximetry Disposition Clinical Impression: Pain, dental Disposition: HOME SELF-CARE Condition: Good Instructions (If sedation given, give patient instructions): Dental Abscess (ED) Prescriptions: Amoxic-Pot Clav 875-125Mg [Augmentin 875-125] 1 tab PO BID 10 Days #20 tab HYDROcodone/APAP 5-325MG [[place] 5-325] 1 tab PO Q6HR PRN 3 Days #12 tab PRN Reason: Severe Pain Is patient prescribed a controlled substance at d/c from ED?: Yes If prescribed controlled substance>3 days was MAPS reviewed?: Prescribed <3 Days Referrals: Lin Henderson MD [Primary Care Provider] - 1-2 days
== END 2020-08-07 12:42 | disposition home or self-care (01) ==
LOC: EC 12:11
DX: K08.89 Other specified disorders of teeth and supporting structures (principal); G40.909 Epilepsy, unspecified, not intractable, without status epilepticus; Z87.891 Personal history of nicotine dependence; Z83.3 Family history of diabetes mellitus
CPT/HCPCS: 99282

== ENCOUNTER 2023-05-21 11:15 | Emergency (ER) | payer OTHER ==
--- NOTE | 2023-05-21 11:43 | ED ---
General Adult HPI - General Chief complaint: Recheck/Abnormal Lab/Rx Stated complaint: STD testing Time Seen by Provider: 05/21/23 11:41 Source: patient, RN notes reviewed Mode of arrival: ambulatory Limitations: no limitations - History of Present Illness Initial comments: 42-year-old female presenting to the ER with a chief complaint of possible STD e xposure. Patient states a recent sexual partner was treated for an STD but will not tell her what specific one. She states she has been having recent vaginal discharge but states she is unsure if it is "normal". Denies any bleeding. Denies any urinary complaints. Upon speaking with patient, she does report suicide ideation within the past week. Denies any plan. Denies any alcohol use. Admits to marijuana use. She reports she has an appointment with [facility] next week. Not currently on any mental health medication. Denies any headache, cough, congestion, fevers, chills, chest pain, shortness of breath, abdominal pain, peripheral edema. - Related Data Home Medications Medication Instructions Recorded Confirmed Frequense Supplement 1 tab PO DAILY 05/21/23 05/21/23 Previous Rx's Medication Instructions Recorded Doxycycline [Vibramycin] 100 mg PO BID #28 capsule 05/21/23 metroNIDAZOLE [Flagyl] 500 mg PO BID #28 tab 05/21/23 Allergies Allergy/AdvReac Type Severity Reaction Status Date / Time [facility]acetam [[facility]] Allergy Intermediate Rash/Hives Verified 05/21/23 12:48 Review of Systems ROS Statement: Those systems with pertinent positive or pertinent negative responses have been documented in the HPI. ROS Other: All systems not noted in ROS Statement are negative. Past Medical History Past Medical History: Seizure Disorder Additional Past Medical History / Comment(s): epilepsy History of Any Multi-Drug Resistant Organisms: None Reported Past Surgical History: Tubal Ligation Additional Past Surgical History / Comment(s): VNS implant, Past Anesthesia/Blood Transfusion Reactions: No Reported Reaction Past Psychological History: No Psychological Hx Reported Smoking Status: Current some day smoker Past Alcohol Use History: None Reported Past Drug Use History: Marijuana - Past Family History Mother Family Medical History: Diabetes Mellitus Father Family Medical History: Seizure Disorder General Exam Limitations: no limitations General appearance: alert, in no apparent distress Head exam: Present: atraumatic, normocephalic, normal inspection Eye exam: Present: normal appearance, PERRL, EOMI. Absent: scleral icterus, co njunctival injection, periorbital swelling Respiratory exam: Present: normal lung sounds bilaterally. Absent: respiratory distress, wheezes, rales, rhonchi, stridor Cardiovascular Exam: Present: regular rate, normal rhythm, normal heart sounds. Absent: systolic murmur, diastolic murmur, rubs, gallop, clicks GI/Abdominal exam: Present: tenderness (mild suprapubic) Neurological exam: Present: alert, oriented X3, CN II-XII intact Psychiatric exam: Present: normal affect, normal mood Skin exam: Present: warm, dry, intact, normal color. Absent: rash Course Vital Signs 05/21/23 05/21/23 11:25 18:38 Temperature 97.7 F Pulse Rate 55 L 59 L Respiratory 17 16 Rate Blood Pressure 159/95 142/99 O2 Sat by Pulse 96 100 Oximetry Medical Decision Making - Medical Decision Making Was pt. sent in by a medical professional or institution (, PA, ANIMAL CARE TAKER, urgent care, hospital, or senior living...) When possible be specific @ -No Did you speak to anyone other than the patient for history (EMS, parent, family, police, friend...)? What history was obtained from this source @ -No Did you review nursing and triage notes (agree or disagree)? Why? @ -I reviewed and agree with nursing and triage notes Were old charts reviewed (outside hosp., previous admission, EMS record, old EKG, old radiological studies, urgent care reports/EKG's, senior living records)? Report findings @ -No old charts were reviewed Differential Diagnosis (chest pain, altered mental status, abdominal pain women, abdominal pain men, vaginal bleeding, weakness, fever, dyspnea, syncope, headache, dizziness, GI bleed, back pain, seizure, CVA, palpatations, mental health, musculoskeletal)? @ -Differential Mental Health: Depression, anxiety, bipolar, psychosis, schizophrenia, borderline personality, situational depression, adjustment disorder, behavioral disorder, brain tumor, malingering, substance abuse, encephalopathy, medication reaction, dementia, hypothyroidism, degenerative neurologic disorder, lupus.... This is not meant to be all-inclusive list EKG interpreted by me (3pts min.). @ -None X-rays interpreted by me (1pt min.). @ -None done CT interpreted by me (1pt min.). @ -None done U/S interpreted by me (1pt. min.). @ -None done What testing was considered but not performed or refused? (CT, X-rays, U/S, labs)? Why? @ -None What meds were considered but not given or refused? Why? @ -None Did you discuss the management of the patient with other professionals (professionals i.e. Dr., PA, ANIMAL CARE TAKER, lab, RT, psych nurse, sexual assault social worker, plate sensitizer, teacher, armor officer, case specialist)? Give summary @ -Yes, case discussed with Shruthi BRISCOE from [facility] who states patient is safe for discharge. As she has follow-up with [facility]. Crisis team will follow-up with patient tonight and tomorrow morning. Was smoking cessation discussed for >3mins.? @ -No Was critical care preformed (if so, how long)? @ -No Were there social determinants of health that impacted care today? How? (Homelessness, low income, unemployed, alcoholism, drug addiction, transportation, low edu. Level, literacy, decrease access to med. care, shelter, rehab)? @ -No Was there de-escalation of care discussed even if they declined (Discuss DNR or withdrawal of care, Hospice)? DNR status @ -No What co-morbidities impacted this encounter? (DM, HTN, Smoking, COPD, CAD, Canc er, CVA, ARF, Chemo, Hep., AIDS, mental health diagnosis, sleep apnea, morbid obesity)? @ -Depression Was patient admitted / discharged? Hospital course, mention meds given and route, prescriptions, significant lab abnormalities, going to OR and other pertinent info. @ - Discharged. Patient is a 42-year-old female presenting to the ER with a chief complaint of STD exposure. History and physical exam completed. Vitals stable. Patient no signs of acute distress and nontoxic-appearing. Chlamydia/gonorrhea/trichomonas urine test pending. Patient would like to be prophylactically treated and received IM Rocephin in the ER. Patient medically cleared for EPS evaluation. Patient cleared for discharge by Shruthi BRISCOE from [facility]. She has intake with [facility] next week. Doxycycline and Flagyl prescribed for STD prophylaxis. Results discussed with patient, all questions answered. Advise close follow-up with PCP. Referral given. I also advised her to follow-up with [facility] as scheduled. Strict return parameters discussed. Patient verbally expressed understanding and agreement with care plan. Case discussed with ED attending, Dr. Trejo. Undiagnosed new problem with uncertain prognosis? @ -No Drug Therapy requiring intensive monitoring for toxicity (Heparin, Nitro, Insulin, Cardizem)? @ -No Were any procedures done? @ -No Diagnosis/symptom? @ -Depression/exposure to STD Acute, or Chronic, or Acute on Chronic? @ -Acute Uncomplicated (without systemic symptoms) or Complicated (systemic symptoms)? @ -Uncomplicated Side effects of treatment? @ -No Exacerbation, Progression, or Severe Exacerbation? @ -No Poses a threat to life or bodily function? How? (Chest pain, [place], [place], pneumonia, PE, COPD, DKA, ARF, appy, cholecystitis, CVA, Diverticulitis, Homicidal, Suicidal, threat to staff... and all critical care pts) @ -Possibly, STDs can lead to infertility. - Lab Data Lab Results 05/21/23 05/21/23 Range/Units 11:55 11:55 Urine Color Yellow Urine Appearance Cloudy H (Clear) Urine pH 6.0 (5.0-8.0) Ur Specific [place] 1.020 (1.001-1.035) Urine Protein Trace H (Negative) Urine Glucose (UA) Negative (Negative) Urine Ketones 1+ H (Negative) Urine Blood Negative (Negative) Urine Nitrite Positive H (Negative) Urine Bilirubin Negative (Negative) Urine Urobilinogen <2.0 (<2.0) mg/dL Ur Leukocyte Esterase Negative (Negative) Urine RBC 1 (0-5) /hpf Urine WBC 4 (0-5) /hpf Ur Squamous Epith Cells 5 H (0-4) /hpf Urine Bacteria Rare H (None) /hpf Urine Mucus Few H (None) /hpf Urine HCG, Qual Not Detected (Not Detectd) Urine Opiates Screen Not Detected (NotDetected) Ur Oxycodone Screen Not Detected (NotDetected) Urine Methadone Screen Not Detected (NotDetected) Ur Barbiturates Screen Not Detected (NotDetected) U Tricyclic Antidepress Not Detected (NotDetected) Ur Phencyclidine Scrn Not Detected (NotDetected) Ur Amphetamines Screen Not Detected (NotDetected) U Methamphetamines Scrn Not Detected (NotDetected) U Benzodiazepines Scrn Not Detected (NotDetected) Urine Cocaine Screen Not Detected (NotDetected) U Marijuana (THC) Screen Detected H (NotDetected) Disposition Clinical Impression: Encounter for assessment of STD exposure, Depression Disposition: HOME SELF-CARE Condition: Stable Additional Instructions: Follow-up with [facility] as scheduled. Complete full course of antibiotics. Return to the ER for new or worsening concerns. Prescriptions: metroNIDAZOLE [Flagyl] 500 mg PO BID #28 tab Doxycycline [Vibramycin] 100 mg PO BID #28 capsule Is patient prescribed a controlled substance at d/c from ED?: No Referrals: None,Stated [Primary Care Provider] - 1-2 days Forms: Area PCPs, Community Resources Time of Disposition: 17:50
[2023-05-21] MEDS: cefTRIAXone 1,000 MG VIAL (IM USE) IM STA (11:58)
[2023-05-21 12:19] VITALS: TEMP 97.7
[2023-05-21 13:08] LABS: Amphetamine Screen,Urine Not Detected (NotDetected); Barbiturate Screen,Urine Not Detected (NotDetected); Benzodiazepines Screen,Urine Not Detected (NotDetected); Cocaine Screen,Urine Not Detected (NotDetected); Methadone Screen, Urine Not Detected (NotDetected); Opiate Screen,Urine Not Detected (NotDetected); Oxycodone Screen, Urine Not Detected (NotDetected); Phencyclidine Screen,Urine Not Detected (NotDetected); Tricyclic Antidepressant,Urine Not Detected (NotDetected); Urn Cannabinoid Scrn Detected (NotDetected)
[2023-05-21 13:26] LABS: Appearance,Urine Cloudy (Clear); Bacteria,Urine Rare /hpf; Bilirubin,Urine Negative (Negative); Blood,Urine Negative (Negative); Color,Urine Yellow; Glucose,Urine (UA) Negative (Negative); Ketones,Urine 1+ (Negative); Leukocyte Esterase,Urine Negative (Negative); Mucus,Urine Few /hpf; Nitrite,Urine Positive (Negative); Protein,Urine Trace (Negative); RBC,Urine 1 /hpf (0-5); Squamous Epithelial Cell,Urine 5 /hpf (0-4); Urobilinogen,Urine <2.0 mg/dL (<2.0); WBC,Urine 4 /hpf (0-5)
[2023-05-21 18:54] VITALS: BP 142/99; PULSE 59; RESP 16
[2023-05-22 13:20] LABS: C. trachomatis,PCR NEG; N. gonorrhoeae,PCR NEG
== END 2023-05-21 18:39 | disposition home or self-care (01) ==
LOC: EC 11:15
DX: F32.A Depression, unspecified (principal); Z20.2 Contact with and (suspected) exposure to infections with a predominantly sexual mode of transmission; F17.200 Nicotine dependence, unspecified, uncomplicated; F12.90 Cannabis use, unspecified, uncomplicated; Z88.8 Allergy status to other drugs, medicaments and biological substances
CPT/HCPCS: 82075; 81001; 81025; 87491; 87591; 80306; 99284; 96372; J0696

== ENCOUNTER 2024-04-17 11:27 | Emergency (ER) | payer BC, OTHER ==
[2024-04-17] MEDS: IBUPROFEN 800 MG TAB PO STA (12:12)
--- NOTE | 2024-04-17 12:17 | ED ---
General Adult HPI - General Chief complaint: Fall Stated complaint: Fall-L arm/R hip pain Time Seen by Provider: 04/17/24 11:36 Source: patient, RN notes reviewed Mode of arrival: ambulatory Limitations: no limitations - History of Present Illness Initial comments: 43-year-old female presenting to the emergency department after fall. States that yesterday while she was at work she slipped and landed onto her left shoulder. She denies hitting her head or loss conscious at time of the injury. States that she "just slipped". Additionally, states that 2 weeks ago she had a another fall when she injured her left hip. At that time she also denies hitting her head. Patient has been able to ambulate and use her right hip and left arm however has been experiencing pain. States that she has not taken any medications today to alleviate symptoms. She denies lower back pain, loss of bladder bowel continence, or saddle anesthesias. Denies previous surgeries of the right hip or left shoulder. - Related Data Home Medications Medication Instructions Recorded Confirmed Frequense Supplement 1 tab PO DAILY 05/21/23 05/21/23 Previous Rx's Medication Instructions Recorded Doxycycline [Vibramycin] 100 mg PO BID #28 capsule 05/21/23 metroNIDAZOLE [Flagyl] 500 mg PO BID #28 tab 05/21/23 Allergies Allergy/AdvReac Type Severity Reaction Status Date / Time [facility]iracetam [[facility]] Allergy Intermediate Rash/Hives Verified 05/21/23 12:48 Review of Systems ROS Statement: Those systems with pertinent positive or pertinent negative responses have been documented in the HPI. ROS Other: All systems not noted in ROS Statement are negative. Past Medical History Past Medical History: Seizure Disorder Additional Past Medical History / Comment(s): epilepsy History of Any Multi-Drug Resistant Organisms: None Reported Past Surgical History: Tubal Ligation Additional Past Surgical History / Comment(s): VNS implant, Past Anesthesia/Blood Transfusion Reactions: No Reported Reaction Past Psychological History: No Psychological Hx Reported Smoking Status: Former smoker Past Drug Use History: None Reported - Past Family History Mother Family Medical History: Diabetes Mellitus Father Family Medical History: Seizure Disorder General Exam Limitations: no limitations Respiratory exam: Present: normal lung sounds bilaterally. Absent: respiratory distress, wheezes, rales, rhonchi, stridor Cardiovascular Exam: Present: regular rate, normal rhythm, normal heart sounds. Absent: systolic murmur, diastolic murmur, rubs, gallop, clicks GI/Abdominal exam: Present: soft, normal bowel sounds. Absent: distended, tenderness, guarding, rebound, rigid Left Shoulder Exam: Present: normal inspection, full ROM, tenderness (with ROM). Absent: abrasion, ecchymosis, deformity, crepitus Neuro motor exam: Present: wrist extension intact Vascular: Absent: vascular compromise Right Hip exam: Present: full ROM, tenderness. Absent: ecchymosis, deformity, crepitus Gait: observed and normal Back exam: Present: normal inspection Course Vital Signs 04/17/24 04/17/24 11:29 12:45 Temperature 97.5 F L 97.9 F Pulse Rate 73 70 Respiratory 20 18 Rate Blood Pressure 144/79 134/76 O2 Sat by Pulse 99 99 Oximetry Medical Decision Making - Medical Decision Making Was pt. sent in by a medical professional or institution (, PA, JOB DEVELOPER, urgent care, hospital, or skilled nursing...) When possible be specific @ -No Did you speak to anyone other than the patient for history (EMS, parent, family, police, friend...)? What history was obtained from this source @ -No Did you review nursing and triage notes (agree or disagree)? Why? @ -I reviewed and agree with nursing and triage notes Were old charts reviewed (outside hosp., previous admission, EMS record, old EKG, old radiological studies, urgent care reports/EKG's, skilled nursing records)? Report findings @ -No old charts were reviewed Differential Diagnosis (chest pain, altered mental status, abdominal pain women, abdominal pain men, vaginal bleeding, weakness, fever, dyspnea, syncope, headache, dizziness, GI bleed, back pain, seizure, CVA, palpatations, mental health, musculoskeletal)? @ -Differential Musculoskeletal Muscular strain, contusion, ligament sprain, fracture, arthritis, septic arthritis, bursitis, cellulitis, muscle spasm, nerve compression, DVT, arterial occlusion, herpes zoster, electrolyte abnormality, tumor.... This is not meant to be in all inclusive list EKG interpreted by me (3pts min.). @ -None X-rays interpreted by me (1pt min.). @ -X-ray completed of the right hip and AP pelvis no acute osseous pathology x-ray completed on the left shoulder mild AC joint arthropathy with no acute pathology CT interpreted by me (1pt min.). @ -None done U/S interpreted by me (1pt. min.). @ -None done What testing was considered but not performed or refused? (CT, X-rays, U/S, labs)? Why? @ -None What meds were considered but not given or refused? Why? @ -None Did you discuss the management of the patient with other professionals (professionals i.e. , PA, JOB DEVELOPER, lab, RT, psych nurse, vp digital marketing social media and crm, iron pourer, teacher, child support officer, telehealth case manager)? Give summary @ -No Was smoking cessation discussed for >3mins.? @ -No Was critical care preformed (if so, how long)? @ -No Were there social determinants of health that impacted care today? How? (Homelessness, low income, unemployed, alcoholism, drug addiction, transportation, low edu. Level, literacy, decrease access to med. care, correction, rehab)? @ -No Was there de-escalation of care discussed even if they declined (Discuss DNR or withdrawal of care, Hospice)? DNR status @ -No What co-morbidities impacted this encounter? (DM, HTN, Smoking, COPD, CAD, Cancer, CVA, ARF, Chemo, Hep., AIDS, mental health diagnosis, sleep apnea, morbid obesity)? @ -None Was patient admitted / discharged? Hospital course, mention meds given and route, prescriptions, significant lab abnormalities, going to OR and other pertinent info. @ -Discharge. 43-year-old female presents emergency department after fall. exam reveals full range of motion of bilateral upper and lower extremities with no signs of neurovascular deficits. She is provided with dose of Motrin. X- rays are unremarkable. Supportive treatment discussed. discussed with Dr. Trejo Undiagnosed new problem with uncertain prognosis? @ -No Drug Therapy requiring intensive monitoring for toxicity (Heparin, Nitro, Insulin, Cardizem)? @ -No Were any procedures done? @ -No Diagnosis/symptom? @ -fall, hip sprain, shoulder pain Acute, or Chronic, or Acute on Chronic? @ -acute Uncomplicated (without systemic symptoms) or Complicated (systemic symptoms)? @ -uncomplicated Side effects of treatment? @ -No Exacerbation, Progression, or Severe Exacerbation? @ -No Poses a threat to life or bodily function? How? (Chest pain, USA, [place], pneumonia, PE, COPD, DKA, ARF, appy, cholecystitis, CVA, Diverticulitis, Homicidal, Suicidal, threat to staff... and all critical care pts) @ -No Disposition Clinical Impression: Fall, Shoulder sprain Disposition: HOME SELF-CARE Condition: Good Instructions (If sedation given, give patient instructions): Shoulder Sprain (ED) Additional Instructions: Please return to the Emergency Department if symptoms worsen or any other concerns. Is patient prescribed a controlled substance at d/c from ED?: No Referrals: None,Stated [Primary Care Provider] - 1-2 days Time of Disposition: 12:34
--- NOTE | 2024-04-17 12:22 | XR ---
EXAMINATION TYPE: XR Hip RT and AP Pelvis DATE OF EXAM: 04/17/2024 12:11 PM INDICATION: Patient age:Female; 43 years old; Reason for study: fall, pain; PHH. pain COMPARISON: None. TECHNIQUE: The right hip was examined in the frontal and lateral projections and a AP pelvis. FINDINGS: No evidence of any acute osseous pathology, joint dislocation, or soft tissue swelling. Bot h SI joints appear intact. There are 2 tubal ligation clips within the pelvis. Few pelvic phleboliths . IMPRESSION: No acute osseous pathology. [facility], , 04/17/2024 12:20 PM
--- NOTE | 2024-04-17 12:22 | XR ---
EXAMINATION TYPE: XR shoulder complete LT DATE OF EXAM: 04/17/2024 12:11 PM INDICATION: Patient age:Female; 43 years old; Reason for study: fall, pain; pain COMPARISON: None TECHNIQUE: The left shoulder was examined in AP, internally rotated and scapular Y projections. . FINDINGS: No evidence of acute osseous pathology, joint dislocation, or soft tissue swelling. Mild arthropathy of the left AC joint with superior spurring and pannus formation. Battery pack overlies the left ches t with lead extending to the neck. The remaining portions of the visualized chest are unremarkable. IMPRESSION: 1. No acute osseous pathology. 2. Mild AC joint arthropathy. [facility], , 04/17/2024 12:19 PM
[2024-04-17 12:54] VITALS: BP 134/76; PULSE 70; RESP 18; TEMP 97.9
== END 2024-04-17 12:45 | disposition home or self-care (01) ==
LOC: EC 11:27
DX: S73.101A Unspecified sprain of right hip, initial encounter (principal); S43.402A Unspecified sprain of left shoulder joint, initial encounter; Z87.891 Personal history of nicotine dependence; W01.0XXA Fall on same level from slipping, tripping and stumbling without subsequent striking against object, initial encounter; Y99.0 Civilian activity done for income or pay
CPT/HCPCS: 73502; 99283

== ENCOUNTER 2024-07-21 15:20 | Emergency (ER) | payer BC ==
[2024-07-21 15:31] VITALS: TEMP 98.3
[2024-07-21] MEDS: SODIUM CHLORIDE 0.9% 1,000 ML IV ONE (16:00)
[2024-07-21] MEDS: ONDANSETRON 4 MG/2 ML VIAL IVP STA (16:01)
[2024-07-21] MEDS: KETOROLAC 15 MG/ML 1 ML VIAL IVP STA (16:01)
[2024-07-21 16:05] LABS: Basophils # (A) 0.04 10*3/uL (0.00-0.10); Basophils % (A) 0.5 %; Eosinophils # (A) 0.12 10*3/uL (0.04-0.35); Eosinophils % (A) 1.4 %; HCT 39.5 % (37.2-46.3); HGB 13.4 g/dL (12.0-15.0); Lymphocytes # (A) 1.87 10*3/uL (0.90-5.00); Lymphocytes % (A) 22.3 %; MCH 28.9 pg (27.0-32.0); MCHC 33.9 g/dL (32.0-37.0); MCV 85.3 fL (80.0-97.0); Mean Platelet Volume 9.2 fL (9.5-12.2); Monocytes # (A) 0.45 10*3/uL (0.20-1.00); Monocytes % (A) 5.4 %; Neutrophils # (A) 5.88 10*3/uL (1.80-7.70); Neutrophils % (A) 70.3 %; Platelet Count 312 10*3/uL (140-440); RBC 4.63 10*6/uL (4.10-5.20); RDW 12.1 % (11.5-14.5); WBC 8.37 10*3/uL (4.50-10.00)
[2024-07-21 16:15] LABS: Appearance,Urine Cloudy (Clear); Bilirubin,Urine Negative (Negative); Blood,Urine Trace (Negative); Color,Urine Colorless; Glucose,Urine (UA) Negative (Negative); Ketones,Urine Negative (Negative); Leukocyte Esterase,Urine Large (Negative); Mucus,Urine Rare /hpf; Nitrite,Urine Negative (Negative); Protein,Urine Negative (Negative); RBC,Urine 5 /hpf (0-5); Specific Gravity,Urine 1.008 (1.001-1.035); Squamous Epithelial Cell,Urine 2 /hpf (0-4); Urobilinogen,Urine <2.0 mg/dL (<2.0); WBC,Urine >182 /hpf (0-5)
[2024-07-21 16:16] LABS: ALT 29 U/L (4-34); AST 24 U/L (14-36); African American GFR (CKD) >90 (>60 ml/min/1.73 sqM); Albumin 4.5 g/dL (3.5-5.0); Alkaline Phosphatase 77 U/L (38-126); Anion Gap 7 mmol/L; Blood Urea Nitrogen 13 mg/dL (7-17); Calcium 9.4 mg/dL (8.4-10.2); Carbon Dioxide 27 mmol/L (22-30); Chloride 104 mmol/L (98-107); Glucose 93 mg/dL (74-99); Non-African American GFR(CKD) >90 (>60 ml/min/1.73 sqM); Potassium 3.9 mmol/L (3.5-5.1); Sodium 138 mmol/L (137-145); Total Bilirubin 1.3 mg/dL (0.2-1.3); Total Protein 7.4 g/dL (6.3-8.2)
--- NOTE | 2024-07-21 17:22 | CT ---
EXAMINATION TYPE: CT abdomen pelvis wo con DATE OF EXAM: 07/21/2024 4:52 PM COMPARISON: None. CLINICAL INDICATION: Female, 43 years old with history of abdominal pain. right flank., right flank p ain TECHNIQUE: Axial images were obtained from above the diaphragm to the pubic rami in the axial plane a t 5 mm thick sections. Reconstructed images are reviewed on the computer in the coronal plane. CONTRAST: mL of . Study performed without Oral Contrast DLP: 1049.4 mGycm, Automated exposure control for dose reduction was used. FINDINGS: Limited CT sections are obtained the lung bases. The lung bases are clear. CT ABDOMEN: Liver: Normal Spleen: Normal Pancreas: Normal Adrenal glands: The adrenal glands are normal. Gallbladder: Normal Kidneys: No masses are evident. No hydronephrosis is present. No cysts are present. Delayed images were obtained through the kidneys, which remain unremarkable. Aorta: Abnormal Inferior vena cava: Normal. CT PELVIS: Loops of bowel within the abdomen and pelvis are normal. Study is without oral contrast limiting bowel evaluation Appendix: Normal as visualized. Urinary bladder: Bladder wall thickening may be present. Genitourinary structures: Uterus is normal. Adnexa are unremarkable follicles may be on the right ova ry. Largest measures 1.4 cm. Osseous structures: No suspicious lytic or sclerotic lesions. IMPRESSION: 1. Diffuse urinary bladder wall thickening. Consider cystitis. 2. No suspicious abnormality to account for right flank pain. 3. Normal-appearing appendix. 4. Small follicles present on the right ovary, the largest measures 1.4 cm [facility], , 07/21/2024 5:19 PM
--- NOTE | 2024-07-21 18:03 | ED ---
General Adult HPI - General Chief complaint: Urogenital Stated complaint: R side pain Time Seen by Provider: 07/21/24 15:40 Source: patient, RN notes reviewed, old records reviewed Mode of arrival: ambulatory Limitations: no limitations - History of Present Illness Initial comments: Patient is a 43-year-old female presents emergency department complaining of right flank pain. Has had painful urination for a few months but has noticed over the last few days has been having some right sided lower back pain with radiation around the right flank and suprapubic discomfort. Denies any obvious hematuria. Denies any history of kidney stones. Denies nausea or vomiting. Denies any diarrhea or constipation. Presents for further evaluation at this time. No known sick contacts. No fevers. States she is not . Denies any vaginal discharge or bleeding. - Related Data Home Medications Medication Instructions Recorded Confirmed Frequense Supplement 1 tab PO DAILY 05/21/23 05/21/23 Previous Rx's Medication Instructions Recorded Doxycycline [Vibramycin] 100 mg PO BID #28 capsule 05/21/23 metroNIDAZOLE [Flagyl] 500 mg PO BID #28 tab 05/21/23 Ciprofloxacin HCl [Cipro] 500 mg PO DAILY 6 Days #6 tab 07/21/24 Allergies Allergy/AdvReac Type Severity Reaction Status Date / Time levetiracetam [From [facility]] Allergy Intermediate Rash/Hives Verified 07/21/24 15:31 Review of Systems ROS Statement: Those systems with pertinent positive or pertinent negative responses have been documented in the HPI. Review of Systems: CONST: Denies fever EYES: Denies blurry vision ENT: Denies nasal congestion C/V: Denies Chest pain RESP: Denies shortness of breath GI: Endorses right flank pain : Denies dysuria SKIN: Denies rash. MSK: Denies joint pain. NEURO: Denies headache ROS Other: All systems not noted in ROS Statement are negative. Past Medical History Past Medical History: Seizure Disorder Additional Past Medical History / Comment(s): epilepsy History of Any Multi-Drug Resistant Organisms: None Reported Past Surgical History: Tubal Ligation Additional Past Surgical History / Comment(s): VNS implant, Past Anesthesia/Blood Transfusion Reactions: No Reported Reaction Past Psychological History: No Psychological Hx Reported Smoking Status: Former smoker Past Drug Use History: None Reported - Past Family History Mother Family Medical History: Diabetes Mellitus Father Family Medical History: Seizure Disorder General Exam - General Exam Comments Initial Comments: General: Appears in no acute distress. HEAD: Normal with no signs of head trauma. EYES: PERRLA, EOMI, conjunctiva normal, no discharge. ENT: Hearing grossly intact, normal oropharynx. RESPIRATORY: Clear breath sounds bilaterally. No wheezes, rales, or rhonchi. C/V: Regular rate and rhythm. S1 and S2 auscultated, peripheral pulses 2+ and intact throughout ABD: Right-sided flank tenderness to palpation. No CVA tenderness to percussion. No guarding or rebound tenderness. Abdomen is nondistended. No peritoneal signs. EXT: Normal range of motion SKIN: No rashes or lesions observed on exposed skin. NEURO: Alert and oriented x 4 Limitations: no limitations Course Vital Signs 07/21/24 07/21/24 15:25 18:19 Temperature 98.3 F Pulse Rate 68 72 Respiratory 17 18 Rate Blood Pressure 133/86 133/84 O2 Sat by Pulse 98 98 Oximetry Medical Decision Making - Medical Decision Making Was pt. sent in by a medical professional or institution (, PA, SINGLE END SEWER, urgent care, hospital, or long-term...) When possible be specific @ -No Did you speak to anyone other than the patient for history (EMS, parent, family, police, friend...)? What history was obtained from this source @ -No Did you review nursing and triage notes (agree or disagree)? Why? @ -I reviewed and agree with nursing and triage notes Were old charts reviewed (outside hosp., previous admission, EMS record, old EKG, old radiological studies, urgent care reports/EKG's, long-term records)? Report findings @ -No old charts were reviewed Differential Diagnosis (chest pain, altered mental status, abdominal pain women, abdominal pain men, vaginal bleeding, weakness, fever, dyspnea, syncope, headache, dizziness, GI bleed, back pain, seizure, CVA, palpatations, mental health, musculoskeletal)? @ -Differential Abdominal Pain Women: Appendicitis, Cholecystitis, diverticulosis, ischemic bowel, pancreatitis, hepatitis, UTI, gastroenteritis, AAA, incarcerated hernia, bowel obstruction, constipation, inflammatory bowel, hepatitis, peptic ulcer disease, splenic infarction, perforated viscus, vulvitis, ovarian torsion, PID, kidney stone, placenta abruption, this is not meant to be an all-inclusive list EKG interpreted by me (3pts min.). @ -As above X-rays interpreted by me (1pt min.). @ -None done CT interpreted by me (1pt min.). @ -CT reveals findings consistent with cystitis. No evidence of ureterolithiasis U/S interpreted by me (1pt. min.). @ -None done What testing was considered but not performed or refused? (CT, X-rays, U/S, labs)? Why? @ -None What meds were considered but not given or refused? Why? @ -None Did you discuss the management of the patient with other professionals (professionals i.e. DrAlfreda, PA, SINGLE END SEWER, lab, RT, psych nurse, school social worker, firer locomotive, teacher, special forces warrant officer, vocational case manager)? Give summary @ -No Was smoking cessation discussed for >3mins.? @ -No Was critical care preformed (if so, how long)? @ -No Were there social determinants of health that impacted care today? How? (Homelessness, low income, unemployed, alcoholism, drug addiction, transportation, low edu. Level, literacy, decrease access to med. care, alf, rehab)? @ -No Was there de-escalation of care discussed even if they declined (Discuss DNR or withdrawal of care, Hospice)? DNR status @ -No What co-morbidities impacted this encounter? (DM, HTN, Smoking, COPD, CAD, Cancer, CVA, ARF, Chemo, Hep., AIDS, mental health diagnosis, sleep apnea, morbid obesity)? @ -None Was patient admitted / discharged? Hospital course, mention meds given and route, prescriptions, significant lab abnormalities, going to OR and other pertinent info. @ -Based on patient's presentation physical exam, presents with urinary complaints. Possible kidney stone. We will obtain CT abdomen pelvis without contrast as well as abdominal labs. Symptomatically treated with IV analgesia medications, Zofran, fluids. Patient was in agreement this plan. Vitals are within acceptable limits. Laboratory studies returned remarkable for findings consistent with a UTI. Urine culture sent. She is not . CT shows no obvious acute findings other than cystitis. I updated the patient. She will be discharged home on antibiotics. I will discharge the patient home on ciprofloxacin as she was having some right sided flank pain to help cover for possible pyelonephritis. Patient was in agreement this plan. Given a dose of IV Rocephin as well as Cipro prior to discharge. I will provide the patient with a prescription for ciprofloxacin. I instructed the patient to follow up with their PCP in the next 1-3 days.. I explained that the patient should return to the emergency department if they experience any worsening symptoms. Strict return precautions were discussed with the patient. The patient expressed understanding of these instructions. I answered all questions that the patient had. The patient was discharged home in good condition with their prescriptions and follow up information. Undiagnosed new problem with uncertain prognosis? @ -No Drug Therapy requiring intensive monitoring for toxicity (Heparin, Nitro, Insulin, Cardizem)? @ -No Were any procedures done? @ -No Diagnosis/symptom? @ -UTI Acute, or Chronic, or Acute on Chronic? @ -Acute Uncomplicated (without systemic symptoms) or Complicated (systemic symptoms)? @ -Uncomplicated Side effects of treatment? @ -No Exacerbation, Progression, or Severe Exacerbation? @ -No Poses a threat to life or bodily function? How? (Chest pain, USA, [place], pneumonia, PE, COPD, DKA, ARF, appy, cholecystitis, CVA, Diverticulitis, Homicidal, Suicidal, threat to staff... and all critical care pts) @ -Unlikely at this time - Lab Data Result diagrams: 07/21/24 15:58 07/21/24 15:58 Lab Results 07/21/24 07/21/24 07/21/24 Range/Units 15:58 15:58 15:58 WBC 8.37 (4.50-10.00) 10*3/uL RBC 4.63 (4.10-5.20) 10*6/uL Hgb 13.4 (12.0-15.0) g/dL Hct 39.5 (37.2-46.3) % MCV 85.3 (80.0-97.0) fL MCH 28.9 (27.0-32.0) pg MCHC 33.9 (32.0-37.0) g/dL Plt Count 312 (140-440) 10*3/uL MPV 9.2 L (9.5-12.2) fL Immature Gran % (Auto) 0.1 % Neutrophils % 70.3 % Lymphocytes % 22.3 % Monocytes % 5.4 % Eosinophils % 1.4 % Basophils % 0.5 % Immature Gran # 0.01 (0.00-0.04) 10*3/uL Neutrophils # 5.88 (1.80-7.70) 10*3/uL Lymphocytes # 1.87 (0.90-5.00) 10*3/uL Monocytes # 0.45 (0.20-1.00) 10*3/uL Eosinophils # 0.12 (0.04-0.35) 10*3/uL Basophils # 0.04 (0.00-0.10) 10*3/uL Sodium (137-145) mmol/L Potassium (3.5-5.1) mmol/L Chloride (98-107) mmol/L Carbon Dioxide (22-30) mmol/L Anion Gap mmol/L BUN (7-17) mg/dL Creatinine (0.52-1.04) mg/dL Est GFR (CKD-EPI)AfAm (>60 ml/min/1.73 sqM) Est GFR (CKD-EPI)NonAf (>60 ml/min/1.73 sqM) Glucose (74-99) mg/dL Calcium (8.4-10.2) mg/dL Total Bilirubin (0.2-1.3) mg/dL AST (14-36) U/L ALT (4-34) U/L Alkaline Phosphatase (38-126) U/L Total Protein (6.3-8.2) g/dL Albumin (3.5-5.0) g/dL Urine Color Colorless Urine Appearance Cloudy H (Clear) Urine pH 6.0 (5.0-8.0) Ur Specific [place] 1.008 (1.001-1.035) Urine Protein Negative (Negative) Urine Glucose (UA) Negative (Negative) Urine Ketones Negative (Negative) Urine Blood Trace H (Negative) Urine Nitrite Negative (Negative) Urine Bilirubin Negative (Negative) Urine Urobilinogen <2.0 (<2.0) mg/dL Ur Leukocyte Esterase Large H (Negative) Urine RBC 5 (0-5) /hpf Urine WBC >182 H (0-5) /hpf Ur Squamous Epith Cells 2 (0-4) /hpf Urine Mucus Rare H (None) /hpf Urine HCG, Qual Not Detected (Not Detectd) 07/21/24 Range/Units 15:58 WBC (4.50-10.00) 10*3/uL RBC (4.10-5.20) 10*6/uL Hgb (12.0-15.0) g/dL Hct (37.2-46.3) % MCV (80.0-97.0) fL MCH (27.0-32.0) pg MCHC (32.0-37.0) g/dL Plt Count (140-440) 10*3/uL MPV (9.5-12.2) fL Immature Gran % (Auto) % Neutrophils % % Lymphocytes % % Monocytes % % Eosinophils % % Basophils % % Immature Gran # (0.00-0.04) 10*3/uL Neutrophils # (1.80-7.70) 10*3/uL Lymphocytes # (0.90-5.00) 10*3/uL Monocytes # (0.20-1.00) 10*3/uL Eosinophils # (0.04-0.35) 10*3/uL Basophils # (0.00-0.10) 10*3/uL Sodium 138 (137-145) mmol/L Potassium 3.9 (3.5-5.1) mmol/L Chloride 104 (98-107) mmol/L Carbon Dioxide 27 (22-30) mmol/L Anion Gap 7 mmol/L BUN 13 (7-17) mg/dL Creatinine 0.68 (0.52-1.04) mg/dL Est GFR (CKD-EPI)AfAm >90 (>60 ml/min/1.73 sqM) Est GFR (CKD-EPI)NonAf >90 (>60 ml/min/1.73 sqM) Glucose 93 (74-99) mg/dL Calcium 9.4 (8.4-10.2) mg/dL Total Bilirubin 1.3 (0.2-1.3) mg/dL AST 24 (14-36) U/L ALT 29 (4-34) U/L Alkaline Phosphatase 77 (38-126) U/L Total Protein 7.4 (6.3-8.2) g/dL Albumin 4.5 (3.5-5.0) g/dL Urine Color Urine Appearance (Clear) Urine pH (5.0-8.0) Ur Specific [place] (1.001-1.035) Urine Protein (Negative) Urine Glucose (UA) (Negative) Urine Ketones (Negative) Urine Blood (Negative) Urine Nitrite (Negative) Urine Bilirubin (Negative) Urine Urobilinogen (<2.0) mg/dL Ur Leukocyte Esterase (Negative) Urine RBC (0-5) /hpf Urine WBC (0-5) /hpf Ur Squamous Epith Cells (0-4) /hpf Urine Mucus (None) /hpf Urine HCG, Qual (Not Detectd) Disposition Clinical Impression: UTI (urinary tract infection) Disposition: HOME SELF-CARE Condition: Good Instructions (If sedation given, give patient instructions): Urinary Tract Infection in Women (ED) Prescriptions: Ciprofloxacin HCl [Cipro] 500 mg PO DAILY 6 Days #6 tab Is patient prescribed a controlled substance at d/c from ED?: No Referrals: [facility] [NON-STAFF] - 1-2 days (Contact a primary care office to become established with a provider. ) [facility] [NON-STAFF] - 1-2 days None,Stated [Primary Care Provider] - 1-2 days Forms: Area PCPs Time of Disposition: 18:00
[2024-07-21] MEDS: CIPROFLOXACIN HCL 500 MG TAB PO STA (18:12)
[2024-07-21] MEDS: cefTRIAXone IN SWFI 1,000 MG/10 ML SYRINGE IVP STA (18:12)
[2024-07-21 18:21] VITALS: BP 133/84; PULSE 72; RESP 18
== END 2024-07-21 18:21 | disposition home or self-care (01) ==
LOC: EC 15:20
DX: N39.0 Urinary tract infection, site not specified (principal); Z88.8 Allergy status to other drugs, medicaments and biological substances; Z87.891 Personal history of nicotine dependence
CPT/HCPCS: 36415; 80053; 85025; 81001; 81025; 87086; 74176; 99284; 96374; 96375 ×2; 96361; J2405; J0696; J1885